=== PATIENT | male | born 1960 | race Caucasian/White ===

== ENCOUNTER 2017-01-01 12:42 | Emergency (ER) | payer OTHER ==
[2017-01-01 12:52] VITALS: RESP 18; TEMP 97.7
[2017-01-01] MEDS ORDERED: TOBRAMYCIN 0.3% OPHTH DROPS 5 ML BTL LEFT EYE STA (14:54)
--- NOTE | 2017-01-01 15:02 | ED ---
Eye Problem HPI - General Chief complaint: Eye Problems Stated complaint: Eye Injury Time Seen by Provider: 01/01/17 14:15 Source: patient Mode of arrival: ambulatory Limitations: no limitations - History of Present Illness Initial comments: Patient is a 56-year-old white male presenting to the emergency department with complaints of left eye injury onset approximately 2 hours prior to arrival. Patient states he was cutting wood outside and was taken a break. Patient states he removed his safety glasses and bent over and a weed poked him in the left eye. Patient complains of eye watering and gritty sensation to his left eye. No treatment prior to arrival. chief complaint: eye injury Onset/Timin -: hour(s) Onset Description: sudden Location: left eye Place: street/outdoors If Injury: direct trauma Eye Symptoms: foreign body sensation, discharge, blurry vision Severity: moderate Severity scale (1-10): 4 If Pain, Quality: other (gritting sensation) Consistency: constant Context: trauma Associated Symptoms: none Treatments Prior to Arrival: none - Related Data Patient Tetanus UTD: Yes Previous Rx's Medication Instructions Recorded Tobramycin 0.3% Ophth Soln [Tobrex 1 - 2 drop BOTH EYES Q4H #1 bottle 01/01/17 0.3% Ophth Soln] Allergies Allergy/AdvReac Type Severity Reaction Status Date / Time No Known Allergies Allergy Verified 07/15/14 16:47 Review of Systems ROS Statement: Those systems with pertinent positive or pertinent negative responses have been documented in the HPI. ROS Other: All systems not noted in ROS Statement are negative. 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 Past Anesthesia/Blood Transfusion Reactions: No Reported Reaction Past Psychological History: No Psychological Hx Reported Smoking Status: Current some day smoker Past Alcohol Use History: None Reported Past Drug Use History: None Reported General Exam Limitations: no limitations General appearance: alert, in no apparent distress Head exam: Present: atraumatic, normocephalic, normal inspection Expanded Eyelids: Normal Inspection: Bilateral Pupils: Regular, Round: Left, Reactive: Left Sclera/Conjunctival: Injection: Left (Corneal abrasion noted to pupil left pupil ) Visual acuity (R) = 20/: 40 Visual acuity (L) = 20/: 30 With correction: No ENT exam: Present: normal exam, normal oropharynx, mucous membranes moist, TM's normal bilaterally, normal external ear exam Neck exam: Present: normal inspection, full ROM. Absent: tenderness, lymphadenopathy Respiratory exam: Present: normal lung sounds bilaterally. Absent: respiratory distress, wheezes, rales, rhonchi, stridor Cardiovascular Exam: Present: regular rate, normal rhythm, normal heart sounds. Absent: systolic murmur, diastolic murmur, rubs, gallop, clicks GI/Abdominal exam: Present: soft, normal bowel sounds. Absent: distended, tenderness, guarding, rebound, rigid Extremities exam: Present: normal inspection, full ROM Neurological exam: Present: alert, oriented X3, normal gait, other (No focal deficits) Psychiatric exam: Present: normal affect, normal mood Skin exam: Present: warm, dry, intact, normal color. Absent: rash Course Vital Signs 01/01/17 12:49 Temperature 97.7 F Pulse Rate 82 Respiratory 18 Rate Blood Pressure 162/83 O2 Sat by Pulse 95 Oximetry Medical Decision Making - Medical Decision Making Corneal abrasion to left pupil without evidence of foreign body. Tobramycin eyedrops initiated in the emergency department. 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 Patient instructed to return to the emergency department immediately if symptoms do not improve or get worse. Patient agrees with treatment plan. Discharge instructions and return parameters reviewed. Disposition Clinical Impression: Injury of conjunctiva and corneal abrasion of left eye w/o FB Disposition: HOME SELF-CARE Condition: Good Instructions: Abrasion (ED) Additional Instructions: Continue tobramycin 1-2 drops every 4 hours for 3-5 days. 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 Please return to the emergency department if symptoms do not improve or get worse. Continue Motrin for pain as needed.. Prescriptions: Tobramycin 0.3% Ophth Soln [Tobrex 0.3% Ophth Soln] 1 - 2 drop BOTH EYES Q4H #1 bottle Referrals: Vito Taveras DO [Primary Care Provider] - 1-2 days Abelardo Santana MD [STAFF PHYSICIAN] - 01/02/17 Time of Disposition: 15:02
[2017-01-01] MEDS ORDERED: PROPARACAINE 0.5% OPHTH DROPS 15 ML BTL LEFT EYE STA (15:06)
[2017-01-01 15:17] VITALS: BP 158/76; PULSE 80
== END 2017-01-01 15:17 | disposition home or self-care (01) ==
LOC: EC 12:42
DX: S05.02XA Injury of conjunctiva and corneal abrasion without foreign body, left eye, initial encounter (principal); W22.8XXA Striking against or struck by other objects, initial encounter; Y93.H9 Activity, other involving exterior property and land maintenance, building and construction; F17.200 Nicotine dependence, unspecified, uncomplicated
CPT/HCPCS: 99283

== ENCOUNTER 2017-12-25 14:37 | Emergency (ER) | payer OTHER ==
[2017-12-25 15:20] VITALS: RESP 18
--- NOTE | 2017-12-25 16:23 | ED ---
Back Pain HPI - General Chief Complaint: Back Pain/Injury Stated Complaint: Abd Pain Time Seen by Provider: 12/25/17 16:23 Source: patient Limitations: no limitations - History of Present Illness Initial Comments: Patient presents with sudden onset left flank pain. Patient states pain started as he was walking to the parking lot leaving the grocery store. Patient denies any falls or trauma. Patient states pain is worse when walking, twisting, moving. Patient states urine is darker than normal, denies any other urinary symptoms. Denies any change in bowel or bladder habits. Denies fevers , chills, nausea, vomiting. Denies history of kidney stones. Patient states having was normal up until onset of pain in parking lot this afternoon. He states he came straight to Hospital, has not tried any treatments at home. Patient states mild exacerbation of pain when he takes a deep breath. - Related Data Previous Rx's Medication Instructions Recorded Cephalexin [Keflex] 500 mg PO Q12HR 10 Days #20 cap 12/25/17 Ibuprofen [Motrin] 600 mg PO Q6HR PRN #20 tab 12/25/17 Methocarbamol [Robaxin] 500 mg PO BID PRN #10 tab 12/25/17 Allergies Allergy/AdvReac Type Severity Reaction Status Date / Time No Known Allergies Allergy Verified 12/25/17 16:44 Review of Systems ROS Statement: Those systems with pertinent positive or pertinent negative responses have been documented in the HPI. ROS Other: All systems not noted in ROS Statement are negative. Constitutional: Denies: fever, chills, weakness ENT: Denies: congestion Respiratory: Denies: cough, dyspnea Cardiovascular: Denies: chest pain, palpitations Endocrine: Denies: fatigue Gastrointestinal: Denies: abdominal pain, nausea, vomiting, diarrhea, constipation Genitourinary: Reports: other (Dark yellow urine). Denies: dysuria, frequency, hematuria Musculoskeletal: Reports: back pain. 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 No acute distress. Conversing normally. Does not appear in pain at rest. Well-appearing. Calm, pleasant. Limitations: no limitations General appearance: alert, in no apparent distress Head exam: Present: atraumatic, normocephalic Eye exam: Present: normal appearance, PERRL, EOMI ENT exam: Present: mucous membranes moist Neck exam: Present: normal inspection Respiratory exam: Present: normal lung sounds bilaterally. Absent: respiratory distress, wheezes, rales Cardiovascular Exam: Present: regular rate, normal rhythm GI/Abdominal exam: Present: soft. Absent: distended, tenderness, guarding Extremities exam: Present: normal inspection Back exam: Present: tenderness, CVA tenderness (L) (mild), other (Mild tenderness just above left flank. Pain exacerbated with active and passive flexion and extension of the back, especially with rotation of the back to either side.). Absent: paraspinal tenderness, vertebral tenderness Neurological exam: Present: alert, oriented X3 Psychiatric exam: Present: normal affect, normal mood Skin exam: Present: warm, dry, intact, normal color. Absent: rash Course Vital Signs 12/25/17 12/25/17 15:18 17:20 Temperature 98.5 F Pulse Rate 74 69 Respiratory 18 18 Rate Blood Pressure 136/80 134/80 O2 Sat by Pulse 97 96 Oximetry Medical Decision Making - Medical Decision Making Patient given Toradol and Robaxin. No significant lab abnormalities. Urinalysis shows questionable infection, given patient's symptoms, we'll give prescription antibiotics. Patient agrees to follow primary care physician for results of urine culture. No significant abnormalities seen on chest x-ray or lumbar spine x-rays per ED reached, awaiting radiology read. Patient reassessed, sleeping comfortably in bed, pain resolved. Patient's symptoms likely secondary to musculoskeletal pain. Discussed monitoring of symptoms, as this could be early in disease process, patient agrees to return to ER for new or worsening symptoms. Patient agrees to follow primary care physician one to 2 days, discussed computed tomography scan of the abdomen and pelvis if symptoms persist. Prescription of Robaxin and Motrin given. We'll discharge home at this time. All questions answered. - Lab Data Result diagrams: 12/25/17 16:56 12/25/17 16:56 Lab Results 12/25/1718 12/25/17 Range/Units 16:56 16:56 16:56 WBC 10.1 (3.8-10.6) k/uL RBC 5.05 (4.30-5.90) m/uL Hgb 15.1 (13.0-17.5) gm/dL Hct 46.8 (39.0-53.0) % MCV 92.7 (80.0-100.0) fL MCH 29.9 (25.0-35.0) pg MCHC 32.2 (31.0-37.0) g/dL RDW 12.6 (11.5-15.5) % Plt Count 480 H (150-450) k/uL Neutrophils % 60 % Lymphocytes % 28 % Monocytes % 8 % Eosinophils % 2 % Basophils % 1 % Neutrophils # 6.1 (1.3-7.7) k/uL Lymphocytes # 2.8 (1.0-4.8) k/uL Monocytes # 0.8 (0-1.0) k/uL Eosinophils # 0.2 (0-0.7) k/uL Basophils # 0.1 (0-0.2) k/uL Sodium 139 (137-145) mmol/L Potassium 4.6 (3.5-5.1) mmol/L Chloride 102 (98-107) mmol/L Carbon Dioxide 26 (22-30) mmol/L Anion Gap 11 mmol/L BUN 15 (9-20) mg/dL Creatinine 0.77 (0.66-1.25) mg/dL Est GFR (MDRD) Af Amer >60 (>60 ml/min/1.73 sqM) Est GFR (MDRD) Non-Af >60 (>60 ml/min/1.73 sqM) Glucose 111 H (74-99) mg/dL Calcium 10.1 (8.4-10.2) mg/dL Urine Color Yellow Urine Appearance Clear (Clear) Urine pH 6.0 (5.0-8.0) Ur Specific Boley 1.022 (1.001-1.035) Urine Protein Trace H (Negative) Urine Glucose (UA) Negative (Negative) Urine Ketones Negative (Negative) Urine Blood Negative (Negative) Urine Nitrite Negative (Negative) Urine Bilirubin Negative (Negative) Urine Urobilinogen <2.0 (<2.0) mg/dL Ur Leukocyte Esterase Moderate H (Negative) Urine RBC 1 (0-5) /hpf Urine WBC 6 H (0-5) /hpf Ur Squamous Epith Cells <1 (0-4) /hpf Urine Bacteria Occasional H (None) /hpf Urine Mucus Moderate H (None) /hpf Disposition Clinical Impression: Left flank pain Disposition: HOME SELF-CARE Condition: Good Instructions: Flank Pain (ED) Additional Instructions: Follow-up with your primary care physician one to 2 days. Return to ER for new or worsening symptoms. Prescriptions: Cephalexin [Keflex] 500 mg PO Q12HR 10 Days #20 cap Ibuprofen [Motrin] 600 mg PO Q6HR PRN #20 tab PRN Reason: Pain Methocarbamol [Robaxin] 500 mg PO BID PRN #10 tab PRN Reason: Muscle Spasm Referrals: None,Stated [REFERRING] - 1-2 days
[2017-12-25] MEDS ORDERED: KETOROLAC 30 MG/ML 1 ML VIAL IVP STA (16:45)
[2017-12-25] MEDS ORDERED: METHOCARBAMOL 500 MG TAB PO STA (16:45)
[2017-12-25 17:08] LABS: Basophils # (A) 0.1 k/uL (0-0.2); Basophils % (A) 1 %; Eosinophils # (A) 0.2 k/uL (0-0.7); Eosinophils % (A) 2 %; HCT 46.8 % (39.0-53.0); HGB 15.1 gm/dL (13.0-17.5); Lymphocytes # (A) 2.8 k/uL (1.0-4.8); Lymphocytes % (A) 28 %; MCH 29.9 pg (25.0-35.0); MCHC 32.2 g/dL (31.0-37.0); MCV 92.7 fL (80.0-100.0); Mean Platelet Volume 7.3; Monocytes # (A) 0.8 k/uL (0-1.0); Monocytes % (A) 8 %; Neutrophils # (A) 6.1 k/uL (1.3-7.7); Neutrophils % (A) 60 %; Platelet Count 480 k/uL (150-450); RBC 5.05 m/uL (4.30-5.90); RDW 12.6 % (11.5-15.5); WBC 10.1 k/uL (3.8-10.6)
[2017-12-25 17:12] LABS: Appearance,Urine Clear (Clear); Bacteria,Urine Occasional /hpf; Bilirubin,Urine Negative (Negative); Blood,Urine Negative (Negative); Color,Urine Yellow; Glucose,Urine (UA) Negative (Negative); Ketones,Urine Negative (Negative); Leukocyte Esterase,Urine Moderate (Negative); Mucus,Urine Moderate /hpf; Nitrite,Urine Negative (Negative); Protein,Urine Trace (Negative); RBC,Urine 1 /hpf (0-5); Specific Gravity,Urine 1.022 (1.001-1.035); Squamous Epithelial Cell,Urine <1 /hpf (0-4); Urobilinogen,Urine <2.0 mg/dL (<2.0); WBC,Urine 6 /hpf (0-5)
[2017-12-25 17:16] LABS: Anion Gap 11 mmol/L; Blood Urea Nitrogen 15 mg/dL (9-20); Calcium 10.1 mg/dL (8.4-10.2); Carbon Dioxide 26 mmol/L (22-30); Chloride 102 mmol/L (98-107); Glucose 111 mg/dL (74-99); Potassium 4.6 mmol/L (3.5-5.1); Sodium 139 mmol/L (137-145)
[2017-12-25 18:36] VITALS: BP 134/70; PULSE 80; TEMP 98
--- NOTE | 2017-12-25 19:17 | XR ---
EXAMINATION TYPE: XR chest 2V DATE OF EXAM: 12/25/2017 COMPARISON: 07/15/2014 HISTORY: Left flank pain TECHNIQUE: Frontal and lateral views of the chest are obtained. FINDINGS: Heart and mediastinum are normal. Lungs are clear of consolidation. There are no hilar mas ses. There are small calcified granulomata at the pulmonary merrick. There is no sign of pleural effusio n. Bony thorax is intact. IMPRESSION: No active cardiopulmonary disease. No change.
--- NOTE | 2017-12-25 19:20 | XR ---
EXAMINATION TYPE: XR lumbar spine 2 or 3V DATE OF EXAM: 12/25/2017 COMPARISON: NONE HISTORY: Left flank pain TECHNIQUE: 3 views FINDINGS: The lumbar vertebra have normal alignment. Disc spaces are fairly normal. Posterior element s are intact. I see no compression fracture. Sacroiliac joints appear intact. There is mild spurring of the endplates. IMPRESSION: Mild spurring. Otherwise negative exam. No fracture.
== END 2017-12-25 18:35 | disposition home or self-care (01) ==
LOC: EC 14:37
DX: R10.9 Unspecified abdominal pain (principal); M54.9 Dorsalgia, unspecified; F17.200 Nicotine dependence, unspecified, uncomplicated
CPT/HCPCS: 36415; 80048; 85025; 81001; 72100; 71046; 99283; 96374; J1885

== ENCOUNTER → 2018-07-10 | Outpatient (CLI) | payer OTHER ==
--- NOTE | 2018-07-10 12:12 | XR ---
EXAMINATION TYPE: XR sternum DATE OF EXAM: 07/10/2018 COMPARISON: None HISTORY: Pain TECHNIQUE: Two-view sternum FINDINGS: No acute fractures of the sternum are evident. Soft tissues appear within normal limits. IMPRESSION: 1. Normal sternum
--- NOTE | 2018-07-10 12:13 | XR ---
EXAMINATION TYPE: XR ribs LT DATE OF EXAM: 07/10/2018 COMPARISON: None HISTORY: Pain TECHNIQUE: Two-view left RIBS FINDINGS: No acute displaced fractures are evident. No pneumothorax is evident. IMPRESSION: 1. Normal left ribs
== END | disposition home or self-care (01) ==
LOC: RADXRMAIN 11:20
PROVIDERS: ATTEND Family Medicine
DX: R07.89 Other chest pain (principal)
CPT/HCPCS: 71120

== ENCOUNTER 2019-06-21 17:08 | Emergency (ER) | payer BC, MEDICARE ==
[2019-06-21 17:12] VITALS: BP 162/88; PULSE 78; RESP 18; TEMP 99.2
--- NOTE | 2019-06-21 18:12 | US ---
EXAMINATION TYPE: US venous doppler duplex LE LT DATE OF EXAM: 06/21/2019 6:07 PM COMPARISON: NONE CLINICAL HISTORY: sent by PCP r/o blood clot left calf. Patient had left calf pain, then felt opping sensation , and has left calf pain x 1 month SIDE PERFORMED: Left TECHNIQUE: The lower extremity deep venous system is examined utilizing real time linear array sonog katrina with graded compression, doppler sonography and color-flow sonography. VESSELS IMAGED: Common Femoral Vein Deep Femoral Vein Greater Saphenous Vein * Femoral Vein Popliteal Vein Small Saphenous Vein * Proximal Calf Veins (* superficial vessels) Left Leg: Negative for DVT IMPRESSION: No evidence of deep venous thrombosis in the left leg.
--- NOTE | 2019-06-21 18:17 | ED ---
Lower Extremity Injury HPI - General Chief Complaint: Extremity Injury, Lower Stated Complaint: Leg swelling Time Seen by Provider: 06/21/19 17:12 Source: patient Mode of arrival: ambulatory Limitations: no limitations - History of Present Illness Initial Comments: 58-year-old male presenting for left calf pain and swelling for the past month. Patient states that one day he pushed off his left calf and felt a pop. He states that she's had pain and swelling. Patient is primary care provider who noted the swelling of the left calf in comparison of the right and sent to the emergency department to rule out blood clot. Patient denies history of DVT or pulmonary embolism denies chest pain shortness of breath denies redness fever chills night sweats or palpable masses. Patient states he is able to weight- bear denies any decrease in strength. Remaining review of systems negative upon arrival patient appears well signs of acute distress. - Related Data Previous Rx's Medication Instructions Recorded Cephalexin [Keflex] 500 mg PO Q12HR 10 Days #20 cap 12/25/17 Ibuprofen [Motrin] 600 mg PO Q6HR PRN #20 tab 12/25/17 Methocarbamol [Robaxin] 500 mg PO BID PRN #10 tab 12/25/17 Allergies Allergy/AdvReac Type Severity Reaction Status Date / Time No Known Allergies Allergy Verified 06/21/19 17:12 Review of Systems ROS Statement: Those systems with pertinent positive or pertinent negative responses have been documented in the HPI. ROS Other: All systems not noted in ROS Statement are negative. 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 Eye: Pupils are equal, round and reactive to light, extra-ocular movements are intact. No nystagmus. There is normal conjunctiva bilaterally. No signs of icterus. Cardiovascular: There is a regular rate and rhythm. No murmur, rub or gallop is appreciated. Respiratory: Lungs are clear to auscultation, respirations are non-labored, breath sounds are equal. No wheezes, stridor, rales, or rhonchi. Musculoskeletal: Slight increase in size of left calf in comparison right. No pitting edema. Patient has tenderness over the mid calf to deep palpation. Achilles intact. Normal ROM at knee and ankle, no tenderness. Strength 5/5. Sensation intact. DP pulses equal bilaterally 2+. Neurological: A&O x 3. CN II-XII intact, There are no obvious motor or sensory deficits. Coordination appears grossly intact. Speech is normal. Skin: Skin is warm and dry and no rashes or lesions are noted. Psychiatric: Cooperative, appropriate mood & affect, normal judgment. Limitations: no limitations Course Vital Signs 06/21/19 17:09 Temperature 99.2 F Pulse Rate 78 Respiratory 18 Rate Blood Pressure 162/88 O2 Sat by Pulse 96 Oximetry Medical Decision Making - Medical Decision Making Ultrasound negative for DVT. This time given history popping sensation I feel patient most likely has a tendon or muscle tear. Recommend patient follow-up with orthopedic surgery for further evaluation. Patient is agreeable with this care plan was discharged appearing well Disposition Clinical Impression: Pain of left calf, Muscle strain Disposition: HOME SELF-CARE Condition: Good Instructions (If sedation given, give patient instructions): Tendon Rupture (ED) Additional Instructions: Please use medication as discussed. Please follow-up with orthopedic surgery in the next week. Please return to emergency room if the symptoms increase or w orsen or for any other concerns, chest pain, shortness of breath. Is patient prescribed a controlled substance at d/c from ED?: No Referrals: Vito Taveras DO [Primary Care Provider] - 1-2 days Kwadwo Jackson PAC [PHYSICIAN [employer] DRIVER OR OPERATOR] - 1-2 days Time of Disposition: 18:16
== END 2019-06-21 18:25 | disposition home or self-care (01) ==
LOC: EC 17:08
DX: S86.912A Strain of unspecified muscle(s) and tendon(s) at lower leg level, left leg, initial encounter (principal); F17.200 Nicotine dependence, unspecified, uncomplicated; X50.9XXA Other and unspecified overexertion or strenuous movements or postures, initial encounter
CPT/HCPCS: 99283

== ENCOUNTER 2019-11-15 17:36 | Emergency (ER) | payer BC ==
[2019-11-15] MEDS ORDERED: DIPH,PERTUS(ACELL)TETVAC-LF 0.5 ML VIAL IM ONE (18:20)
[2019-11-15] MEDS ORDERED: PROPARACAINE 0.5% OPHTH DROPS 15 ML BTL LEFT EYE STA (18:20)
--- NOTE | 2019-11-15 18:29 | ED ---
General Adult HPI - General Source: patient, RN notes reviewed, old records reviewed Mode of arrival: ambulatory Limitations: no limitations <Desmond Mcneil - Last Filed: 11/15/19 19:41> <Mark Chappell - Last Filed: 11/15/19 19:55> - General Chief complaint: Fall Stated complaint: fall/eye injury Time Seen by Provider: 11/15/19 18:08 - History of Present Illness Initial comments: 59-year-old male patient past history significant for appendectomy and splenectomy presents to ED for chief complaint of fall. Patient reports that at approximately 5:20 PM he was exiting the shower. He reports that while walking out of the shower his [place] leg the tub edge. She reports that he slipped and fell back into the shower. Patient reports that he hit his forehead against the wall slid down and he believes that he had a portion of the water spout directly onto his left eye. At this time patient does complain of bleeding from the left eye. He reports that he has cloudy vision in his left eye as well as diplopia. Denies any pain in neck. Denies any use of blood thinners. Denies any other complaints at this time. Systemic: Pt denies fatigue, fever/chills, rash. Pt denies weakness, night sweats, weight loss. Neuro: Pt denies headache, visual disturbances, syncope or pre-syncope. HEENT: Pt denies ocular discharge or irritation, otalgia, rhinorrhea, pharyngitis or notable lymphadenopathy. Cardiopulmonary: Pt denies chest pain, SOB, heart palpitations, dyspnea on exertion. Abdominal/GI: Pt denies abdominal pain, n/v/d. : Pt denies dysuria, burning w/ urination, frequency/urgency. Denies new onset urinary or bowel incontinence. MSK: Pt denies myalgia, loss of strength or function in extremities. Neuro: Pt denies new onset weakness, paresthesias. (Desmond Mcneil) - Related Data Previous Rx's Medication Instructions Recorded Cephalexin [Keflex] 500 mg PO Q12HR 10 Days #20 cap 12/25/17 Ibuprofen [Motrin] 600 mg PO Q6HR PRN #20 tab 12/25/17 Methocarbamol [Robaxin] 500 mg PO BID PRN #10 tab 12/25/17 Amoxicillin/Potassium Clav 1 each PO Q12HR 10 Days #20 tab 11/15/19 [Augmentin 875-125 Tablet] Gentamicin 0.3% Ophth Soln 2 drops LEFT EYE Q4HR 5 Days #1 11/15/19 [Garamycin 0.3% Ophth Soln] bottle Allergies Allergy/AdvReac Type Severity Reaction Status Date / Time No Known Allergies Allergy Verified 06/21/19 17:12 Review of Systems ROS Other: All systems not noted in ROS Statement are negative. <Desmond Mcneil - Last Filed: 11/15/19 19:41> ROS Other: All systems not noted in ROS Statement are negative. <Mark Chappell - Last Filed: 11/15/19 19:55> ROS Statement: Those systems with pertinent positive or pertinent negative responses have been documented in the HPI. 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 HEENT: NC/AT, trachea midline, neck supple, no lymphadenopathy. Posterior pharynx non erythematous, without exudates. External ears appear normal, without discharge. Mucous membranes moist. Eyes PERRLA, EOM intact. No pallor noted. Intraocular pressure average of 18 right sided, average 26 left-sided. Mild amount of blood noted on the conjunctiva. Cornea abrasion at 3:00. No hyphema is noted. Cardiopulmonary: RRR, no murmurs, rubs or gallops, no JVD noted. Lungs CTAB in anterior and posterior carroll. No peripheral edema. Abdominal exam: Abdomen soft and non-distended. Abdomen non-tender to palpation in all 4 quadrants. Bowel sounds active in LLQ. No hepatosplenomegaly. No ecchymosis Neuro: CN II-XII intact. No nuchal rigidity. No raccon eyes, no prater sign, no hemotympanum. No cervical spinal tenderness. MSK: No posterior calf tenderness bilaterally, homans sign negative bilaterally. Posterior tibialis and radial pulse +2 bilaterally. Sensation intact in upper and lower extremities. Full active ROM in upper and lower extremities, 5/5 stregnth. Derm: Small superficial laceration <1 cm above left eye proximal to eyebrow elidia aned approximated with Steri-Strip. Visual Acuity: Bilateral: 20/20 Right Eye: 20/30 Left Eye 20/20 (Desmond Mcneil) Course Vital Signs 11/15/19 11/15/19 17:53 19:48 Temperature 98.7 F 97.9 F Pulse Rate 81 77 Respiratory 18 17 Rate Blood Pressure 186/86 169/81 O2 Sat by Pulse 95 96 Oximetry Medical Decision Making - Lab Data Result diagrams: 11/15/19 18:28 11/15/19 18:28 <Desmond Mcneil - Last Filed: 11/15/19 19:41> - Lab Data Result diagrams: 11/15/19 18:28 11/15/19 18:28 <Mark Chappell - Last Filed: 11/15/19 19:55> - Medical Decision Making 59-year-old male patient past history significant for appendectomy and splenectomy presents to ED for chief complaint of fall. Patient reports that at approximately 5:20 PM he was exiting the shower. He reports that while walking out of the shower his [place] leg the tub edge. She reports that he slipped and fell back into the shower. Patient reports that he hit his forehead against the wall slid down and he believes that he had a portion of the water spout directly onto his left eye. At this time patient does complain of bleeding from the left eye. He reports that he has cloudy vision in his left eye as well as diplopia. Denies any pain in neck. Denies any use of blood thinners. Denies any other complaints at this time. Patient vital signs slight mild hypertension. Physical exam displayed: Intraocular pressure average of 18 right sided, average 26 left-sided. Mild amount of blood noted on the conjunctiva. Cornea abrasion at 3:00. No hyphema is noted. N II-XII intact. No nuchal rigidity. No raccon eyes, no prater sign, no hemotympanum. No cervical spinal tenderness. Small superficial laceration <1 cm above left eye proximal to eyebrow cleaned approximated with Steri-Strip. Visual acuity displayed bilateral 20/20 vision. Right eye was 20/30. Left eye which was the affected eye was 20/20. CT of orbits displayed mild subcutaneous swelling over the frontal bone. No fracture seen. Ethmoid and maxillary moderate sinusitis. Brain CT did not display any acute intracranial process with exception of sinusitis redemonstrated. No evidence of blowout fracture. Tetanus was updated. Case was discussed in depth the patient was examined by Dr. Chappell. Discussed case with Dr. Santana. Dr. Santana recommended discharge with antibiotic eyedrops. Will see patient on Monday. Patient was discharged with gentamicin eyedrops and Augmentin for sinusitis. Will return to ER if condition worsens. (Desmond Mcneil) Patient was reevaluated by myself, Dr. Chappell. Patient does have subconjunctival hemorrhage. No hyphema. There is evidence of moderate to large abrasion left lateral eye. Extraocular muscles intact. Pupils equal round reactive to light. Funduscopic exam within normal limits, able to visualize the retina. Computed tomography scan shows no evidence of globe rupture. Case was discussed in detail with Dr. Santana who believes doubled vision is likely from swelling and is very comfortable secondary to no globe rupture on computed tomography scan. He will follow-up with the patient on Monday. Patient updated. (Mark Chappell) - Lab Data Lab Results 11/15/19 11/15/19 11/15/19 Range/Units 18:28 18:28 18:28 WBC 10.5 (3.8-10.6) k/uL RBC 5.10 (4.30-5.90) m/uL Hgb 15.6 (13.0-17.5) gm/dL Hct 47.3 (39.0-53.0) % MCV 92.7 (80.0-100.0) fL MCH 30.6 (25.0-35.0) pg MCHC 33.0 (31.0-37.0) g/dL RDW 13.3 (11.5-15.5) % Plt Count 460 H (150-450) k/uL Neutrophils % 57 % Lymphocytes % 29 % Monocytes % 7 % Eosinophils % 4 % Basophils % 4 % Neutrophils # 6.0 (1.3-7.7) k/uL Lymphocytes # 3.1 (1.0-4.8) k/uL Monocytes # 0.7 (0-1.0) k/uL Eosinophils # 0.4 (0-0.7) k/uL Basophils # 0.4 H (0-0.2) k/uL PT 10.1 (9.0-12.0) sec INR 0.9 (<1.2) APTT 24.5 (22.0-30.0) sec Sodium 138 (137-145) mmol/L Potassium 4.3 (3.5-5.1) mmol/L Chloride 104 (98-107) mmol/L Carbon Dioxide 24 (22-30) mmol/L Anion Gap 10 mmol/L BUN 18 (9-20) mg/dL Creatinine 0.78 (0.66-1.25) mg/dL Est GFR (CKD-EPI)AfAm >90 (>60 ml/min/1.73 sqM) Est GFR (CKD-EPI)NonAf >90 (>60 ml/min/1.73 sqM) Glucose 109 H (74-99) mg/dL Calcium 9.7 (8.4-10.2) mg/dL Total Bilirubin 0.5 (0.2-1.3) mg/dL AST 32 (17-59) U/L ALT 28 (4-49) U/L Alkaline Phosphatase 91 (38-126) U/L Total Protein 7.6 (6.3-8.2) g/dL Albumin 4.4 (3.5-5.0) g/dL Disposition Is patient prescribed a controlled substance at d/c from ED?: No <Desmond Mcneil - Last Filed: 11/15/19 19:41> <Mark Chappell - Last Filed: 11/15/19 19:55> Clinical Impression: Corneal abrasion, Fall, Sinusitis Disposition: HOME SELF-CARE Condition: Stable Instructions (If sedation given, give patient instructions): Corneal Abrasion (ED) Additional Instructions: Take antibiotics as directed. Follow-up with Dr. Santana on Monday. Return to ER physician worsens in any way. Use eyedrops 2 drops every 4 hours for 5 days. Use in left eye only. Take Augm entin the pill twice a day for the next 10 days. Prescriptions: Amoxicillin/Potassium Clav [Augmentin 875-125 Tablet] 1 each PO Q12HR 10 Days #20 tab Gentamicin 0.3% Ophth Soln [Garamycin 0.3% Ophth Soln] 2 drops LEFT EYE Q4HR 5 Days #1 bottle Referrals: Vito Taveras DO [Primary Care Provider] - 1-2 days Abelardo Santana MD [STAFF PHYSICIAN] - 1-2 days
[2019-11-15 18:43] LABS: Basophils # (A) 0.4 k/uL (0-0.2); Basophils % (A) 4 %; Eosinophils # (A) 0.4 k/uL (0-0.7); Eosinophils % (A) 4 %; HCT 47.3 % (39.0-53.0); HGB 15.6 gm/dL (13.0-17.5); Lymphocytes # (A) 3.1 k/uL (1.0-4.8); Lymphocytes % (A) 29 %; MCH 30.6 pg (25.0-35.0); MCV 92.7 fL (80.0-100.0); Mean Platelet Volume 10.2; Monocytes # (A) 0.7 k/uL (0-1.0); Monocytes % (A) 7 %; Neutrophils % (A) 57 %; Platelet Count 460 k/uL (150-450); RDW 13.3 % (11.5-15.5); WBC 10.5 k/uL (3.8-10.6)
[2019-11-15] MEDS ORDERED: MORPHINE SULFATE 2 MG/ML SYRINGE IVP STA (18:50)
--- NOTE | 2019-11-15 18:50 | CT ---
EXAMINATION TYPE: CT brain wo con DATE OF EXAM: 11/15/2019 COMPARISON: None HISTORY: Fall, left orbital swelling and contusion. CT DLP: 1093.6 mGycm Automated exposure control for dose reduction was used. Multiple axial sections were obtained of the brain with no contrast. Ventricles have normal size. There is no mass effect nor midline shift. There is no sign of intracran ial hemorrhage. The calvarium is intact. There is mucosal thickening and fluid levels in the maxillar y sinuses. There is moderate mucosal thickening in the ethmoid sinuses. I see no evidence of a blowou t fracture of the orbits. Orbital margins are intact. Calvarium is intact. IMPRESSION: Negative CT scan of the brain. Maxillary and ethmoid sinusitis.
[2019-11-15 18:53] LABS: INR 0.9 (<1.2); Partial Thromboplastin Time 24.5 sec (22.0-30.0); Prothrombin Time 10.1 sec (9.0-12.0)
--- NOTE | 2019-11-15 18:53 | CT ---
EXAMINATION TYPE: CT orbits wo con DATE OF EXAM: 11/15/2019 COMPARISON: HISTORY: Fall, left orbital swelling and contusion. CT DLP: 1093.6 mGycm Automated exposure control for dose reduction was used. Multiple axial sections were obtained from the maxillary sinuses to the top of the frontal sinuses wi th no contrast. There is moderate mucosal thickening in the maxillary and ethmoid sinuses. Nasal bone appears intact. Orbital margins are intact. There is no evidence of a blowout fracture. There is mild subcutaneous e jayne over the frontal bone. The globes are symmetric. There is no evidence of orbital blowout fractur e. I see no bony destructive process. IMPRESSION: Mild subcutaneous swelling over the frontal bone. No fracture seen. Ethmoid and maxillary moderate si nusitis. No evidence of blowout fracture.
[2019-11-15 18:56] LABS: ALT 28 U/L (4-49); AST 32 U/L (17-59); African American GFR (CKD) >90 (>60 ml/min/1.73 sqM); Albumin 4.4 g/dL (3.5-5.0); Alkaline Phosphatase 91 U/L (38-126); Anion Gap 10 mmol/L; Blood Urea Nitrogen 18 mg/dL (9-20); Calcium 9.7 mg/dL (8.4-10.2); Carbon Dioxide 24 mmol/L (22-30); Chloride 104 mmol/L (98-107); Glucose 109 mg/dL (74-99); Non-African American GFR(CKD) >90 (>60 ml/min/1.73 sqM); Potassium 4.3 mmol/L (3.5-5.1); Sodium 138 mmol/L (137-145); Total Bilirubin 0.5 mg/dL (0.2-1.3); Total Protein 7.6 g/dL (6.3-8.2)
[2019-11-15] MEDS ORDERED: AMOXIC-POT CLAV 875MG STARTER 2 EACH TABLET PO STA (19:43)
[2019-11-15] MEDS ORDERED: GENTAMICIN 0.3% OPHTH DROPS 5 ML BTL LEFT EYE STA (19:44)
[2019-11-15 19:49] VITALS: BP 169/81; PULSE 77; RESP 17; TEMP 97.9
== END 2019-11-15 20:18 | disposition home or self-care (01) ==
LOC: EC 17:36
DX: S05.02XA Injury of conjunctiva and corneal abrasion without foreign body, left eye, initial encounter (principal); J32.0 Chronic maxillary sinusitis; J32.2 Chronic ethmoidal sinusitis; S01.81XA Laceration without foreign body of other part of head, initial encounter; I10 Essential (primary) hypertension; H11.32 Conjunctival hemorrhage, left eye; F17.200 Nicotine dependence, unspecified, uncomplicated; Z23 Encounter for immunization; W18.2XXA Fall in (into) shower or empty bathtub, initial encounter; Y93.01 Activity, walking, marching and hiking; Y92.002 Bathroom of unspecified non-institutional (private) residence as the place of occurrence of the external cause
CPT/HCPCS: 36415; 80053; 85025; 85610; 85730; 70450; 70480; 90715; 99284; 96374; 90471; J2270

== ENCOUNTER 2021-04-26 21:07 | Emergency (ER) | payer BC ==
[2021-04-26 21:28] VITALS: TEMP 97.7
[2021-04-26] MEDS ORDERED: METOCLOPRAMIDE 5 MG/ML 2 ML VIAL IVP STA (22:19)
[2021-04-26 22:54] LABS: Basophils # (A) 0.1 k/uL (0-0.2); Basophils % (A) 1 %; Eosinophils # (A) 0.4 k/uL (0-0.7); Eosinophils % (A) 4 %; HCT 43.5 % (39.0-53.0); HGB 14.9 gm/dL (13.0-17.5); Lymphocytes # (A) 3.6 k/uL (1.0-4.8); Lymphocytes % (A) 31 %; MCH 30.6 pg (25.0-35.0); MCHC 34.3 g/dL (31.0-37.0); MCV 89.1 fL (80.0-100.0); Mean Platelet Volume 7.7; Monocytes # (A) 0.8 k/uL (0-1.0); Monocytes % (A) 7 %; Neutrophils # (A) 6.5 k/uL (1.3-7.7); Neutrophils % (A) 56 %; Platelet Count 423 k/uL (150-450); RBC 4.89 m/uL (4.30-5.90); RDW 12.7 % (11.5-15.5); WBC 11.7 k/uL (3.8-10.6)
[2021-04-26 22:58] LABS: African American GFR (CKD) >90 (>60 ml/min/1.73 sqM); Anion Gap 8 mmol/L; Blood Urea Nitrogen 22 mg/dL (9-20); Calcium 9.6 mg/dL (8.4-10.2); Carbon Dioxide 28 mmol/L (22-30); Chloride 104 mmol/L (98-107); Glucose 104 mg/dL (74-99); Non-African American GFR(CKD) >90 (>60 ml/min/1.73 sqM); Potassium 4.2 mmol/L (3.5-5.1); Sodium 140 mmol/L (137-145)
--- NOTE | 2021-04-26 23:09 | CT ---
EXAMINATION TYPE: CT brain wo con DATE OF EXAM: 04/26/2021 COMPARISON: 11/15/2019 HISTORY: HEADACHE X 1WEEK CT DLP: 3306.1 mGycm Automated exposure control for dose reduction was used. Images of the brain obtained without contrast. There is mild cerebral atrophy. There is no mass effect nor midline shift. There is no sign of intrac ranial hemorrhage. Calvarium is intact. Skull base is intact. There is normal aeration of the mastoid sinuses. There is mucosal thickening in the maxillary sinuses. IMPRESSION: Mild atrophy. No acute intracranial abnormality. No change.
--- NOTE | 2021-04-26 23:24 | CT ---
EXAMINATION TYPE: CT angio COW [facility] DATE OF EXAM: 04/26/2021 COMPARISON: None HISTORY: HEADACHE CT DLP: 3306.1 mGycm Automated exposure control for dose reduction was used. CONTRAST: Performed with IV Contrast, patient injected with 100 mL of Isovue 370. There are 3-D post processed images. Images obtained from the skull base to the vertex of the brain w ith IV contrast. There is arterial flow in the vertebrobasilar artery system. There is arterial flow in the anterior m iddle and posterior cerebral arteries. There is no mass effect. I see no evidence of intracranial ane urysm or neovascularity. There is normal enhancement of the venous sinuses. I see no evidence of intr acranial arterial stenosis. There is bilateral maxillary sinusitis with mucosal thickening. There is mild ethmoid sinus mucosal thickening. IMPRESSION: Negative CT angiogram of the brain. There is ethmoid and maxillary sinusitis.
--- NOTE | 2021-04-26 23:26 | ED ---
Headache HPI - General Chief Complaint: Headache Stated Complaint: headache Time Seen by Provider: 04/26/21 21:52 Mode of arrival: ambulatory Limitations: no limitations - History of Present Illness Initial Comments: This patient is 60-year-old man who presents to be evaluated for intermittent headaches that is been going on today. He states that he will have a sharp pain in the left parietal area that lasts usually 5-10 seconds and resolves. No associated symptoms. He did see his primary physician and it was recommended he come in to be seen here For CAT scan. No fever or chills. No neck pain or stiffness. No neurologic symptoms. MD Complaint: headache -: hour(s) Onset Description: sudden, now resolved Location: left Severity: moderate Quality: sharp, intermittent, worst headache of life Consistency: intermittent Improves With: nothing Worsens With: none Context: occurred at rest Treatments Prior to Arrival: none - Related Data Previous Rx's Medication Instructions Recorded Cephalexin [Keflex] 500 mg PO Q12HR 10 Days #20 cap 12/25/17 Ibuprofen [Motrin] 600 mg PO Q6HR PRN #20 tab 12/25/17 Methocarbamol [Robaxin] 500 mg PO BID PRN #10 tab 12/25/17 Amoxicillin/Potassium Clav 1 each PO Q12HR 10 Days #20 tab 11/15/19 [Augmentin 875-125 Tablet] Gentamicin 0.3% Ophth Soln 2 drops LEFT EYE Q4HR 5 Days #1 11/15/19 [Garamycin 0.3% Ophth Soln] bottle Allergies Allergy/AdvReac Type Severity Reaction Status Date / Time No Known Allergies Allergy Verified 04/26/21 21:27 Review of Systems ROS Statement: Those systems with pertinent positive or pertinent negative responses have been documented in the HPI. ROS Other: All systems not noted in ROS Statement are negative. Constitutional: Denies: fever, chills Respiratory: Denies: cough, dyspnea Cardiovascular: Denies: chest pain, palpitations Gastrointestinal: Denies: abdominal pain, nausea, vomiting Genitourinary: Denies: dysuria Musculoskeletal: Denies: back pain Skin: Denies: rash Neurological: Reports: headache. 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 Absent: scleral icterus, conjunctival injection, nystagmus, periorbital swelling, periorbital tenderness ENT exam: Present: normal oropharynx, TM's normal bilaterally, normal external ear exam Neck exam: Present: normal inspection, full ROM. Absent: tenderness Respiratory exam: Present: normal lung sounds bilaterally. Absent: respiratory distress, wheezes, rales, rhonchi, stridor Cardiovascular Exam: Present: regular rate, normal rhythm, normal heart sounds. Absent: systolic murmur, diastolic murmur, rubs, gallop Back exam: Present: normal inspection. Absent: CVA tenderness (R), CVA tenderness (L), vertebral tenderness Neurological exam: Present: alert, oriented X3, CN II-XII intact. Absent: motor sensory deficit Skin exam: Present: warm, dry, intact, normal color. Absent: rash Course Vital Signs 04/26/21 04/26/21 04/27/21 21:25 22:27 00:22 Temperature 97.7 F Pulse Rate 73 84 70 Respiratory 20 18 16 Rate Blood Pressure 186/96 185/86 159/85 O2 Sat by Pulse 96 98 96 Oximetry Medical Decision Making - Lab Data Result diagrams: 04/26/21 22:28 04/26/21 22:28 Lab Results 04/26/21 04/26/21 Range/Units 22:28 22:28 WBC 11.7 H (3.8-10.6) k/uL RBC 4.89 (4.30-5.90) m/uL Hgb 14.9 (13.0-17.5) gm/dL Hct 43.5 (39.0-53.0) % MCV 89.1 (80.0-100.0) fL MCH 30.6 (25.0-35.0) pg MCHC 34.3 (31.0-37.0) g/dL RDW 12.7 (11.5-15.5) % Plt Count 423 (150-450) k/uL MPV 7.7 Neutrophils % 56 % Lymphocytes % 31 % Monocytes % 7 % Eosinophils % 4 % Basophils % 1 % Neutrophils # 6.5 (1.3-7.7) k/uL Lymphocytes # 3.6 (1.0-4.8) k/uL Monocytes # 0.8 (0-1.0) k/uL Eosinophils # 0.4 (0-0.7) k/uL Basophils # 0.1 (0-0.2) k/uL Sodium 140 (137-145) mmol/L Potassium 4.2 (3.5-5.1) mmol/L Chloride 104 (98-107) mmol/L Carbon Dioxide 28 (22-30) mmol/L Anion Gap 8 mmol/L BUN 22 H (9-20) mg/dL Creatinine 0.88 (0.66-1.25) mg/dL Est GFR (CKD-EPI)AfAm >90 (>60 ml/min/1.73 sqM) Est GFR (CKD-EPI)NonAf >90 (>60 ml/min/1.73 sqM) Glucose 104 H (74-99) mg/dL Calcium 9.6 (8.4-10.2) mg/dL Disposition Clinical Impression: Headache Disposition: HOME SELF-CARE Condition: Good Instructions (If sedation given, give patient instructions): Acute Headache (ED) Is patient prescribed a controlled substance at d/c from ED?: No Referrals: Vito Taveras DO [Primary Care Provider] - 1-2 days Kris Laird MD [STAFF PHYSICIAN] - 1-2 days
[2021-04-27 00:26] VITALS: BP 159/85; PULSE 70; RESP 16
== END 2021-04-27 00:34 | disposition home or self-care (01) ==
LOC: EC 21:07
DX: R51.9 Headache, unspecified (principal); F17.200 Nicotine dependence, unspecified, uncomplicated; F12.90 Cannabis use, unspecified, uncomplicated
CPT/HCPCS: 99284 ×2; 96374 ×2; 36415; 80048; 85025; 70496; 70450; J2765; Q9967

== ENCOUNTER 2024-09-03 11:03 | Inpatient (IN) | payer BC ==
--- NOTE | 2024-09-03 11:57 | ED ---
General Adult HPI - General Chief complaint: Dizziness Stated complaint: dizziness Time Seen by Provider: 09/03/24 11:31 Source: patient Mode of arrival: ambulatory Limitations: no limitations - History of Present Illness Initial comments: Dictation was produced using e[employer] dictation software. please excuse any grammatical, word or spelling errors. Chief Complaint: 63-year-old male presents with dizziness History of Present Illness: Patient 63-year-old male presents emergency department dizziness. He was at [employer] when he started to feel like the room was spinning. He came to the emergency department instead. Did not fall to the ground. Patient states he has been feeling lightheaded since yesterday. Denies any headache. No pain complaints. No fever chills or night sweats. No obvious sick contacts. Patient when he sits still states that he does not feel dizzy however when he turns his head or stands up quickly feels as if he is drunk. The ROS documented in this emergency department record has been reviewed and confirmed by me. Those systems with pertinent positive or negative responses have been documented in the HPI. All other systems are other negative and/or noncontributory. - Related Data Home Medications Medication Instructions Recorded Confirmed No Known Home Medications 09/03/24 09/03/24 Allergies Allergy/AdvReac Type Severity Reaction Status Date / Time No Known Allergies Allergy Verified 09/03/24 13:22 Review of Systems ROS Statement: Those systems with pertinent positive or pertinent negative responses have been documented in the HPI. ROS Other: All systems not noted in ROS Statement are negative. 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 Cardiovascular: Heart regular rate and rhythm Chest: Able to complete full sentences, no retractions, no tachypnea Abdomen: abdomen soft, non-tender, non-distended, no organomegaly Musculoskeletal: Pulses present and equal in all extremities, no peripheral edema Motor: no focal deficits noted Neurological: CN II-XII grossly intact, no focal motor or sensory deficits noted, right gaze nystagmus with fast phase to the right Skin: Intact with no visualized rashes Psych: Normal affect and mood Limitations: no limitations Course Vital Signs 09/03/24 09/03/24 09/03/24 11:25 12:59 13:53 Temperature 97.6 F Pulse Rate 61 65 68 Respiratory 18 18 Rate Blood Pressure 216/94 195/98 182/82 O2 Sat by Pulse 97 98 95 Oximetry EKG Findings - EKG Comments: EKG Findings:: My EKG interpretation: Ventricular rate 59, sinus bradycardia,. 181, QRS 87, QTc 418. No [place] prolongation, no QTC prolongation, no ST or T-wave changes noted. E EKG compared from July 15, 2014 showing new T wave inversions in inferior and lateral precordial leads. Overall this EKG is nonspecific Medical Decision Making - Medical Decision Making Was pt. sent in by a medical professional or institution (, PA, TRANSPORT DRIVER, urgent care, hospital, or custodial...) When possible be specific @ -No Did you speak to anyone other than the patient for history (EMS, parent, family, police, friend...)? What history was obtained from this source @ -No Did you review nursing and triage notes (agree or disagree)? Why? @ -I reviewed and agree with nursing and triage notes Were old charts reviewed (outside hosp., previous admission, EMS record, old EKG, old radiological studies, urgent care reports/EKG's, custodial records)? Report findings @ -No old charts were reviewed Differential Diagnosis (chest pain, altered mental status, abdominal pain women, abdominal pain men, vaginal bleeding, musculoskeletal, weakness, fever, dyspnea, syncope, headache, dizziness, GI bleed, back pain, seizure, CVA, palpatations, mental health)? @ -Differential Dizziness: Benign paroxysmal positional Vertigo, Meniere's disease, otitis media, acoustic neuroma, vertebrobasilar insufficiency, cerebellar stroke, encephalitis, hypovolemic, arrhythmia, coronary artery syndrome, anemia, this is not meant to be an all-inclusive list EKG interpreted by me (3pts min.). @ -As above X-rays interpreted by me (1pt min.). @ -None done CT interpreted by me (1pt min.). @ - U/S interpreted by me (1pt. min.). @ -None done What testing was considered but not performed or refused? (CT, X-rays, U/S, labs)? Why? @ -None What meds were considered but not given or refused? Why? @ -None Was smoking cessation discussed for >3mins.? @ -No Were there social determinants of health that impacted care today? How? (Homelessness, low income, unemployed, alcoholism, drug addiction, transportation, low edu. Level, literacy, decrease access to med. care, detention, rehab)? @ -No Was there de-escalation of care discussed even if they declined (Discuss DNR or withdrawal of care, Hospice)? DNR status @ -No What co-morbidities impacted this encounter? (DM, HTN, Smoking, COPD, CAD, Cancer, CVA, ARF, Chemo, Hep., AIDS, mental health diagnosis, sleep apnea, morbid obesity)? @ -None Was patient admitted / discharged? Hospital course, mention meds given and route, prescriptions, significant lab abnormalities, going to OR and other pertinent info. @ -63-year-old male presents to the emergency department for dizziness precipitated when standing. Vital signs upon arrival are within acceptable limits states that he feels like he is going to pass out when he stands. There is some component of vertigo however he does not have any symptoms at the bedside when going from laying to sitting or turning his head. Seems to be only precipitated by standing and ambulating. Patient was told that he needs to be on certain medications however does not follow-up with a primary care doctor. Patient denies ever being diagnosed with hypertension despite having blood pressure of 216/94. He has been told that he should take blood pressure medications however said that he did not because he thought that he had abnormal blood pressure secondary to eating 2 jelly donuts. Evaluation obtained labs are unremarkable. Viral testing negative. Patient still significantly symptomatic. Disposition options were discussed she is agreeable with hospital admission. Cardiology consulted for recommendations for presyncope Did you discuss the management of the patient with other professionals (professionals i.e. , PA, TRANSPORT DRIVER, lab, RT, psych nurse, group social worker, rotary swaging machine operator, teacher, protective officer, showcase trimmer)? Give summary @ -Case discussed with hospitalist. Case discussed Dr. Dumont who request that patient be started on oral losartan for management of blood pressure Was critical care preformed (if so, how long)? @ -No Undiagnosed new problem with uncertain prognosis? @ -No Drug Therapy requiring intensive monitoring for toxicity (Heparin, Nitro, Insulin, Cardizem)? @ -No Were any procedures done? @ -No Diagnosis/symptom? Acute, or Chronic, or Acute on Chronic? Uncomplicated (without systemic symptoms) or Complicated (systemic symptoms)? @ -Presyncope, symptomatic hypertension Side effects of treatment? @ -No Exacerbation, Progression, or Severe Exacerbation? @ -No Poses a threat to life or bodily function? How? (Chest pain, USA, AR, pneumonia, PE, COPD, DKA, ARF, appy, cholecystitis, CVA, Diverticulitis, Homicidal, Suicidal, threat to staff... and all critical care pts) @ -yes - Lab Data Result diagrams: 09/03/24 12:05 09/03/24 12:05 Lab Results 09/03/24 09/03/24 09/03/24 Range/Units 12:05 12:05 12:05 WBC 11.1 H (3.8-10.6) k/uL RBC 4.59 (4.30-5.90) m/uL Hgb 14.3 (13.0-17.5) gm/dL Hct 42.2 (39.0-53.0) % MCV 91.9 (80.0-100.0) fL MCH 31.2 (25.0-35.0) pg MCHC 33.9 (31.0-37.0) g/dL RDW 13.0 (11.5-15.5) % Plt Count 421 (150-450) k/uL MPV 7.3 Neutrophils % 63 % Lymphocytes % 26 % Monocytes % 6 % Eosinophils % 3 % Basophils % 1 % Neutrophils # 7.0 (1.3-7.7) k/uL Lymphocytes # 2.9 (1.0-4.8) k/uL Monocytes # 0.7 (0-1.0) k/uL Eosinophils # 0.3 (0-0.7) k/uL Basophils # 0.1 (0-0.2) k/uL Sodium 138 (137-145) mmol/L Potassium 3.5 (3.5-5.1) mmol/L Chloride 103 (98-107) mmol/L Carbon Dioxide 28 (22-30) mmol/L Anion Gap 7 mmol/L BUN 12 (9-20) mg/dL Creatinine 0.73 (0.66-1.25) mg/dL Est GFR (CKD-EPI)AfAm >90 (>60 ml/min/1.73 sqM) Est GFR (CKD-EPI)NonAf >90 (>60 ml/min/1.73 sqM) Glucose 136 H (74-99) mg/dL Calcium 9.0 (8.4-10.2) mg/dL Influenza Type A (PCR) Not Detected (Not Detectd) Influenza Type B (PCR) Not Detected (Not Detectd) RSV (PCR) Not Detected (Not Detectd) SARS-CoV-2 (PCR) Not Detected (Not Detectd) Disposition Clinical Impression: Pre-syncope Disposition: ADMITTED IP TO THIS HOSP Condition: Fair Referrals: Vito Taveras DO [Primary Care Provider] - 1-2 days Decision Time: 14:42
[2024-09-03 12:17] LABS: Basophils # (A) 0.1 k/uL (0-0.2); Basophils % (A) 1 %; Eosinophils # (A) 0.3 k/uL (0-0.7); Eosinophils % (A) 3 %; HCT 42.2 % (39.0-53.0); HGB 14.3 gm/dL (13.0-17.5); Lymphocytes # (A) 2.9 k/uL (1.0-4.8); Lymphocytes % (A) 26 %; MCH 31.2 pg (25.0-35.0); MCHC 33.9 g/dL (31.0-37.0); MCV 91.9 fL (80.0-100.0); Mean Platelet Volume 7.3; Monocytes # (A) 0.7 k/uL (0-1.0); Monocytes % (A) 6 %; Neutrophils % (A) 63 %; Platelet Count 421 k/uL (150-450); RBC 4.59 m/uL (4.30-5.90); WBC 11.1 k/uL (3.8-10.6)
[2024-09-03 12:40] LABS: African American GFR (CKD) >90 (>60 ml/min/1.73 sqM); Anion Gap 7 mmol/L; Blood Urea Nitrogen 12 mg/dL (9-20); Carbon Dioxide 28 mmol/L (22-30); Chloride 103 mmol/L (98-107); Glucose 136 mg/dL (74-99); Non-African American GFR(CKD) >90 (>60 ml/min/1.73 sqM); Potassium 3.5 mmol/L (3.5-5.1); Sodium 138 mmol/L (137-145)
[2024-09-03] MEDS: METOCLOPRAMIDE 5 MG/ML 2 ML VIAL IVP STA (12:54)
[2024-09-03] MEDS: MECLIZINE 12.5 MG TAB PO STA (12:54)
[2024-09-03] MEDS: SODIUM CHLORIDE 0.9% 1,000 ML IV STA (12:56)
[2024-09-03] MEDS ORDERED: NALOXONE 0.4 MG/ML 1 ML VIAL IV PRN (14:34)
[2024-09-03] MEDS ORDERED: ONDANSETRON 4 MG/2 ML VIAL IVP PRN (14:34)
[2024-09-03] MEDS: LOSARTAN 25 MG TAB PO SCH (14:56)
[2024-09-03] MEDS: SODIUM CHLORIDE 0.9% 1,000 ML IV SCH (14:57)
--- NOTE | 2024-09-03 14:57 | CT ---
EXAMINATION TYPE: CT brain wo con DATE OF EXAM: 09/03/2024 COMPARISON: 04/26/2021 INDICATION: dizziness, htn DLP: 1188.1 mGycm, Automated exposure control for dose reduction was used. CONTRAST: None CT of the brain is performed utilizing 3 mm thick sections through the posterior fossa and 3 mm thick sections through the remaining calvarium. Study is performed within 24 hours of arrival to the hosp ital. No abnormal hyperdensity is present to suggest an acute intracranial hemorrhage. No mass lesion is evident. No acute infarcts are evident. Ventricles and sulci are appropriate for the patient age. Paranasal sinuses and mastoid air cells within the [id number] are clear. IMPRESSION: 1. No acute intracranial process. Follow up MRI can be performed as clinically indicated. [facility], Workstation: [facility], 09/03/2024 2:54 PM
--- NOTE | 2024-09-03 22:05 | P.HPIM ---
History of Present Illness H&P Date: 09/03/24 Chief Complaint: Dizziness Patient is a 63-year-old male with a past medical history of hypertension currently not taking any medications, currently everyday smoker and occasional marijuana use presents to ER with complaints of dizziness and lightheadedness. Patient states that his dizziness started yesterday. Today patient states that he went to [employer] and felt very dizzy and started having cold sweats. He walked to his car and drove to ER. Patient was also complaining of headache. [place] like room spinning and almost passed out. Dizziness worsens with movement or getting out of bed. Denied any loss of consciousness. Denied any focal weakness. No visual changes. No complaints of dysarthria or difficulty finding words. Patient denied any recent illnesses. Denied any recent travel. Patient is supposed to take 1 blood pressure medication but he has not been taking for a long time. EKG on admission showed sinus bradycardia with heart rate 59 CT head showed no acute intracranial process. Laboratory showed WBC 11.0 hemoglobin 14.3 and platelets 421 sodium 138 potassium 3.5 chloride 102 bicarb is 28 BUN 12 and creatinine 0.73 and blood sugar 136. Troponin x 1 negative. Clinically ABRS and COVID-19 PCR not detected. Review of Systems Constitutional: Patient denies any fever or chills . No generalized weakness or weight loss. Abdomen: Patient denied nausea vomiting and diarrhea and abdominal pain. Cardiovascular: Patient denies any chest pain or short of breath no palpitations. Respiratory: patient denied any cough or sputum production. No shortness of breath Neurologic: Patient denied any numbness or tingling. Patient does have dizziness and headache. Musculoskeletal: Patient denies any complaints of joint swelling or deformity. Skin: Negative Psychiatric: Negative Endocrine: No heat or cold intolerance. No recent weight gain. Genitourinary: No dysuria or hematuria. 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 Past Anesthesia/Blood Transfusion Reactions: No Reported Reaction Past Psychological History: No Psychological Hx Reported Smoking Status: Current every day smoker Past Alcohol Use History: Occasional Past Drug Use History: Marijuana Medications and Allergies Home Medications Medication Instructions Recorded Confirmed Type No Known Home Medications 09/03/24 09/03/24 History Allergies Allergy/AdvReac Type Severity Reaction Status Date / Time No Known Allergies Allergy Verified 09/03/24 13:22 Physical Exam Vitals: Vital Signs Temp Pulse Pulse Pulse Pulse Resp BP 09/03/24 20:37 63 18 180/81 09/03/24 18:27 98 F 72 18 181/84 09/03/24 15:32 64 68 67 09/03/24 14:49 65 20 181/84 09/03/24 13:53 68 182/82 09/03/24 12:59 65 18 195/98 09/03/24 11:25 97.6 F 61 18 216/94 BP BP BP Pulse Ox 09/03/24 20:37 96 09/03/24 18:27 96 09/03/24 15:32 214/107 226/119 205/102 09/03/24 14:49 97 09/03/24 13:53 95 09/03/24 12:59 98 09/03/24 11:25 97 Intake and Output 09/03/24 09/03/24 09/03/24 06:59 14:59 22:59 Other: Weight 120.202 kg PHYSICAL EXAMINATION: Patient is lying in the bed, appears to be in mild discomfort., awake alert and oriented.. HEENT: Normocephalic. Neck is supple. Pupils reactive. Nostrils clear. Oral cavity is moist. Neck reveals no JVD, carotid bruits, or thyromegaly. CHEST EXAMINATION: Trachea is central. Symmetrical expansion. Lung carroll clear to auscultation and percussion. CARDIAC: Normal S1, S2 with no gallops. No murmurs ABDOMEN: Soft. Bowel sounds normal. No organomegaly. No abdominal bruits. Extremities: reveal no edema. No clubbing or cyanosis Neurologically awake, alert, oriented x3 with well-coordinated movements. No focal deficits noted Skin: No rash or skin lesions. Psychiatric: Coperative. Nonsuicidal Musculoskeletal: No joint swelling or deformity. Normal range of motion. Results CBC & Chem 7: 09/03/24 12:05 09/03/24 12:05 Labs: Abnormal Lab Results - Last 24 Hours (Table) 09/03/24 09/03/24 Range/Units 12:05 12:05 WBC 11.1 H (3.8-10.6) k/uL Glucose 136 H (74-99) mg/dL Thrombosis Risk Factor Assmnt - DVT/VTE Prophylaxis DVT/VTE Prophylaxis: Pharmacologic Prophylaxis ordered Assessment and Plan Assessment: Dizziness and near syncopal episode Hypertensive urgency Sinus bradycardia Noncompliance with medications Morbid obesity with BMI of 40.3 Ongoing nicotine addiction DVT prophylaxis with heparin subcu Plan: Patient will be continued on telemonitoring. Troponin x [address] head s howed no acute intracranial process. Patient will be started on losartan and nifedipine. Orthostatic vitals were ordered. Continue to titrate blood pressure medications. 2D echocardiogram was ordered and cardiology consult for evaluation. Patient was also given a dose of meclizine in the ER. Continue to follow closely. Smoking cessation has been counseled. Discussed with the patient and his at bedside in detail. Time with Patient: Greater than 30
[2024-09-03] MEDS: NIFEdipine 10 MG CAP PO SCH (22:28)
[2024-09-04] MEDS: HEPARIN SODIUM,PORCINE 5,000 UNIT/ML 1 ML VIAL SQ SCH (01:57)
--- NOTE | 2024-09-04 07:31 | XR ---
EXAMINATION TYPE: XR chest 1V DATE OF EXAM: 09/04/2024 COMPARISON: 12/25/2017 HISTORY: 63-year-old male near-syncope TECHNIQUE: Single frontal view of the chest is obtained. FINDINGS: Portable exam further limited by body habitus. Hazy densities likely relate to overlying s oft tissue density. Heart appears mildly enlarged. No sarah consolidation or pleural effusion seen. IMPRESSION: Portable exam further limited by body habitus. Mild cardiomegaly. No definite acute proc ess. [facility], , 09/04/2024 7:28 AM
--- NOTE | 2024-09-04 07:45 | US ---
EXAMINATION TYPE: US carotid duplex BILAT DATE OF EXAM: 09/04/2024 COMPARISON: NONE CLINICAL INDICATION: Male, 63 years old with history of Near Syncope; syncope TECHNIQUE: Grayscale, color Doppler and spectral Doppler evaluation of the bilateral carotid systems and vertebral arteries. Indirect Doppler criteria was utilized. FINDINGS: EXAM MEASUREMENTS: RIGHT: Peak Systolic Velocity (PSV) cm/sec ----- Right CCA: 70.1 ----- Right ICA: 84.3 ----- Right ECA: 176 ICA/CCA ratio: 1.2 RIGHT: End Diastole cm/sec ----- Right CCA: 11.3 ----- Right ICA: 16.6 ----- Right ECA: 19.9 LEFT: Peak Systolic Velocity (PSV) cm/sec ----- Left CCA: 96.2 ----- Left ICA: 73.5 ----- Left ECA: 189 ICA/CCA ratio: 0.76 LEFT: End Diastole cm/sec ----- Left CCA: 14.8 ----- Left ICA: 19.9 ----- Left ECA: 17.8 VERTEBRALS (direction of flow): Right Vertebral: Not seen Left Vertebral: Antegrade Rhythm: Normal SCRAP PREPARER NOTES: Mild plaque seen. No elevated velocities noted IMPRESSION: 1. No hemodynamically significant internal carotid artery stenosis on either side. 2. Unable to visualize the right vertebral artery. Criteria for Assigning % of Stenosis / Diameter reduction (Estimation based on the indirect measurements of the internal carotid artery velocities (ICA PSV). 1. Normal (no stenosis)=ICA PSV < 125 cm/s: ratio < 2.0: ICA EDV<40 cm/s. 2. Less than 50% stenosis=ICA PSV < 125 cm/s: ratio < 2.0: ICA EDV<40 cm/s. 3. 50 to 69% stenosis=ICA PSV of 125 to 230 cm/s: ration 2.0 ? 4.0: ICA EDV 40-100 cm/s. 4. Greater than 70% stenosis to near occlusion= ICA PSV > 230 cm/s: ratio > 4.0: ICA EDV > 100 cm/s. 5. Near occlusion= ICA PSV velocities may be low or undetectable: variable ratio and ICA EDV. 6. Total occlusion=unable to detect flow. [facility], , 09/04/2024 7:42 AM
[2024-09-04] MEDS: LOSARTAN 50 MG TAB PO SCH (08:28)
[2024-09-04] MEDS: amLODIPine 10 MG TAB PO SCH (08:28)
[2024-09-04 08:29] LABS: Basophils # (A) 0.07 X 10*3/uL (0.00-0.10); Basophils % (A) 0.6 %; Eosinophils # (A) 0.22 X 10*3/uL (0.04-0.35); Eosinophils % (A) 1.8 %; HCT 45.3 % (39.6-50.0); HGB 15.1 g/dL (13.0-17.0); Lymphocytes # (A) 2.93 X 10*3/uL (0.90-5.00); Lymphocytes % (A) 23.6 %; MCHC 33.3 g/dL (32.0-37.0); MCV 89.9 FL (80.0-97.0); Mean Platelet Volume 10.4 FL (9.5-12.2); Monocytes # (A) 1.21 X 10*3/uL (0.20-1.00); Monocytes % (A) 9.8 %; NRBC Per 100 WBC 0 X 10*3/uL (0.00-0.01); Neutrophils % (A) 63.7 %; Platelet Count 454 X 10*3/uL (140-440); RBC 5.04 X 10*6/uL (4.40-5.60); RDW 13.2 % (11.5-14.5); WBC 12.39 X 10*3/uL (4.50-10.00)
[2024-09-04 08:43] LABS: BUN/Creat Ratio 12.86 Ratio (12.00-20.00); Calcium 9.2 mg/dL (8.7-10.3); Carbon Dioxide 24.8 mmol/L (21.6-31.8); Chloride 101 mmol/L (96-109); Glucose 118 mg/dL (70-110); Potassium 3.8 mmol/L (3.5-5.5); Sodium 138 mmol/L (135-145)
--- NOTE | 2024-09-04 10:06 | CONS ---
CONSULTATION HISTORY OF PRESENT ILLNESS: Brent is a 63-year-old gentleman, who is admitted to hospital with hypertensive urgency. He has history of hypertension, but has not been taking his medications regularly. In fact has not been taking any medications at all. He had episodes of dizziness over the last 2 days and yesterday felt unwell, came to the hospital and his blood pressures were severely elevated. On his initial presentation, he was at 205/102 and was treated with Procardia and 25 mg of losartan. Blood pressures have improved somewhat, but this morning blood pressure is back up at 187/87. The patient denies chest pain, difficulty in breathing, palpitations, or syncope. There is no history of focal neurological deficits. The dizziness has improved. I am starting the patient on 10 mg of amlodipine and 50 mg of losartan. I will give another dose of losartan this evening if necessary. He had a troponin that was negative, TSH that was normal. Potassium is 3.8, creatinine is normal at 0.7. White cell count is slightly elevated, but the hemoglobin is normal. A chest x-ray was negative. An EKG showed sinus rhythm and extensive ST-T wave changes secondary to left ventricular hypertrophy. He had a carotid duplex study that did not show significant carotid stenosis and a CT scan of the brain that was negative for any acute pathology. PAST MEDICAL HISTORY: Significant for hypertension. MEDICATIONS: None. ALLERGIES: None. FAMILY HISTORY: Negative for premature coronary artery disease. SOCIAL HISTORY: Denies smoking, ETOH abuse, or drug abuse. REVIEW OF SYSTEMS: 14 out of 14 review of systems has been performed. Pertinents are as documented. PHYSICAL EXAMINATION: GENERAL: The patient is comfortable at rest. VITAL SIGNS: Blood pressure is elevated. NECK: There is no jugular venous distention. Carotid upstroke is normal. There is no bruit. CHEST: Reveals good air entry bilaterally. HEART: Reveals first and second heart sounds. An S4 is heard. ABDOMEN: Soft. EXTREMITIES: Did not reveal any edema. Peripheral pulses are felt. Pulses are equal and normal in both upper extremities. MICROELECTRONICS TECHNICIAN: Did not reveal any focal neurological deficits. ASSESSMENT AND PLAN: Hypertensive urgency. PLAN: I am starting the patient on losartan and amlodipine. I will obtain a 2D echo and I will keep adjusting medications until blood pressures are well controlled. I do not see the need to do workup for secondary hypertension at this time as he has history of hypertension and has not really been taking any medications, but if necessary, I will investigate him further down the road. CROW / SAEN: [id number] /
--- NOTE | 2024-09-04 11:53 | CA ---
Transthoracic Echo Report Name: Brent Downey Age: 63 Gender: M : 1960 Exam Date: 09/04/2024 08:29 Exam Location: [place] [facility] Ht (in): 68 Wt (lb): 265 Ordering Physician: Luc Gould MD Attending/Referring Phys: Rd Lab Technician Rose Cleary RDCS Procedure CPT: Indications: near syncope Cardiac Hx: Technical Quality: Fair Contrast 1: Total Dose (mL): Contrast 2: Total Dose (mL): MEASUREMENTS (Male / Female) Normal Values 2D ECHO LV Diastolic Volume MOD BP 165.8 cm??? 67 - 155 / 56 - 104 cm??? LV Systolic Volume MOD BP 61.7 cm??? 22 - 58 / 19 - 49 cm??? LV Ejection Fraction MOD BP 62.8 % >= 55 % LV Cardiac Index MOD BP 2966.2 cm???/min???m??? LV Diastolic Volume MOD 4C 162.0 cm??? LV Systolic Volume MOD 4C 52.0 cm??? LV Ejection Fraction MOD 4C 67.9 % LV Cardiac Index MOD 4C 3132.5 cm???/min???m??? LV Diastolic Length 4C 9.2 cm LV Systolic Length 4C 7.1 cm LV Diastolic Volume MOD 2C 164.0 cm??? LV Systolic Volume MOD 2C 69.3 cm??? LV Ejection Fraction MOD 2C 57.7 % LV Cardiac Index MOD 2C 2695.4 cm???/min???m??? LV Diastolic Length 2C 9.5 cm LV Systolic Length 2C 7.6 cm LA Volume 72.6 cm??? 18 - 58 / 22 - 52 cm??? LA Volume Index 29.5 cm???/m??? 16 - 28 cm???/m??? DOPPLER AV Peak Velocity 190.7 cm/s AV Peak Gradient 14.6 mmHg AV Mean Velocity 125.5 cm/s AV Mean Gradient 7.3 mmHg AV Velocity Time Integral 33.3 cm LVOT Peak Velocity 135.1 cm/s LVOT Peak Gradient 7.3 mmHg LVOT Velocity Time Integral 24.8 cm MV Area PHT 3.2 cm??? Mitral E Point Velocity 52.6 cm/s Mitral A Point Velocity 56.9 cm/s Mitral E to A Ratio 0.9 MV Deceleration Time 238.1 ms FINDINGS Left Ventricle Left ventricular ejection fraction is estimated at 60-65 %. Mildly increased left ventricular diastolic volume. Mildly increased left ventricular systolic volume. No obvious regional wall motion abnormalities. Hyperdynamic left ventricular systolic function. Right Ventricle Normal right ventricular size and function. Unable to estimate the right ventricular systolic pressure. Right Atrium Normal right atrial size. Left Atrium Mildly increased left atrial volume. Mildly increased left atrial area. Mitral Valve Structurally normal mitral valve. No mitral stenosis, regurgitation or prolapse. Aortic Valve Aortic valve not well visualized. No aortic valve stenosis or regurgitation. Tricuspid Valve Structurally normal tricuspid valve. No tricuspid stenosis, regurgitation or prolapse. Pulmonic Valve Pulmonic valve not well visualized. Pericardium No pericardial effusion. Aorta Aortic root and proximal ascending aorta not well visualized. CONCLUSIONS Normal LV function Previewed by: Dr. Rashel Gloria MD (Electronically Signed) Final Date: 04 September 2024 11:52
[2024-09-04] MEDS: LOSARTAN 50 MG TAB PO STA (15:14)
[2024-09-04] MEDS: cloNIDine HCL 0.1 MG TAB PO PRN (16:39)
[2024-09-04] MEDS ORDERED: ACETAMINOPHEN TAB 325 MG TAB PO PRN (18:50)
[2024-09-04] MEDS: hydrALAZINE HCL 25 MG TAB PO SCH (18:56)
--- NOTE | 2024-09-05 04:09 | P.PN ---
Subjective Progress Note Date: 09/04/24 Patient is a 63-year-old male with a past medical history of hypertension currently not taking any medications, currently everyday smoker and occasional marijuana use presents to ER with complaints of dizziness and lightheadedness. Patient states that his dizziness started yesterday. Today patient states that he went to [employer] and felt very dizzy and started having cold sweats. He walked to his car and drove to ER. Patient was also complaining of headache. [place] like room spinning and almost passed out. Dizziness worsens with movement or getting out of bed. Denied any loss of consciousness. Denied any focal weakness. No visual changes. No complaints of dysarthria or difficulty finding words. Patient denied any recent illnesses. Denied any recent travel. Patient is supposed to take 1 blood pressure medication but he has not been taking for a long time. EKG on admission showed sinus bradycardia with heart rate 59 CT head showed no acute intracranial process. Laboratory showed WBC 11.0 hemoglobin 14.3 and platelets 421 sodium 138 potassium 3.5 chloride 102 bicarb is 28 BUN 12 and creatinine 0.73 and blood sugar 136. Troponin x 1 negative. Clinically ABRS and COVID-19 PCR not detected. 09/04/2024 Patient is seen in follow-up today continues to report similar symptoms of l ightheadedness and dizziness. Blood pressures have been completely uncontrolled in the 180s systolic and cardiology has been evaluated making adjustments to medications and a 2D echo is ordered at this time. Patient does sound somewhat congested on exam and virology testing was negative. Patient reports he has not been sick and has not been around sick people. Will consult neurology and appreciate input and recommendations.. Review of systems: Constitutional: No reports of fatigue, fever, or chills Cardiovascular: No reports of chest pain or palpitations, reports feeling lightheaded and dizzy when getting up Respiratory: No reports of shortness of breath or cough GI: No reports of nausea, vomiting, or diarrhea : No reports of dysuria or retention Neurovascular: No reports of weakness or numbness All medications have been reviewed PHYSICAL EXAMINATION: Patient is sitting up in the bed, well-developed, morbidly obese, awake alert and oriented.. HEENT: Normocephalic. Neck is supple. Pupils reactive. Nostrils clear. Oral cavity is moist. Neck reveals no JVD, carotid bruits, or thyromegaly. CHEST EXAMINATION: Trachea is central. Symmetrical expansion. Lung carroll clear to auscultation and percussion. CARDIAC: Normal S1, S2 with no gallops. No murmurs ABDOMEN: Soft. Obese. Bowel sounds normal. No organomegaly. No abdominal bruits. Extremities: reveal no edema. No clubbing or cyanosis Neurologically awake, alert, oriented x3 with well-coordinated movements. No fo lizzie deficits noted Skin: No rash or skin lesions. Psychiatric: Cooperative. Non-suicidal Musculoskeletal: No joint swelling or deformity. Normal range of motion. Assessment: Dizziness and near syncopal episode Hypertensive urgency Sinus bradycardia Noncompliance with medications Morbid obesity with BMI of 40.3 Ongoing THC addiction Former smoker GI prophylaxis DVT prophylaxis with heparin subcu Full code Plan: Patient will be continued on telemonitoring. Troponin x [address] head showed no acute intracranial process. Patient being evaluated by cardiology making adjustments to medications. Orthostatic vitals were ordered. Patient continues to report symptoms of dizziness and lightheadedness and 2D echo is ordered and pending. Will consult neurology and appreciate input and recommendations Hemoglobin A1c is pending at this time The impression and plan of care has been dictated by Liza Kwan, Nurse Practitioner as directed. Dr. Bryanna MD I have performed a history and examination and MDM of this patient, discussed the same with the dictator, and agree with the dictator's assessment and plan as written ,documented as a scribe. Based on total visit time, I have performed more than 50% of the visit. Objective - Vital Signs Vital signs: Vital Signs Temp 98.8 F 09/04/24 07:00 Pulse 67 09/04/24 07:00 Resp 17 09/04/24 07:00 BP 187/87 09/04/24 07:00 Pulse Ox 96 09/04/24 07:00 FiO2 Intake & Output 09/03/24 09/04/24 09/04/24 18:59 06:59 18:59 Intake Total 360 Balance 360 Weight 120.202 kg Intake: Oral 360 Other: Voiding Method Toilet # Voids 2 - Labs CBC & Chem 7: 09/04/24 04:09 09/04/24 04:09 Labs: Abnormal Lab Results - Last 24 Hours (Table) 09/03/24 09/03/24 09/04/24 Range/Units 12:05 12:05 04:09 WBC 11.1 H (3.8-10.6) k/uL Plt Count (140-440) X 10*3/uL Immature Gran # (0.00-0.04) X 10*3/uL Neutrophils # (1.80-7.70) X 10*3/uL Monocytes # (0.20-1.00) X 10*3/uL Anion Gap (4.00-12.00) mmol/L Glucose 136 H (74-99) mg/dL Hemoglobin A1c 6.5 H (<=6.0) % 09/04/24 09/04/24 Range/Units 04:09 04:09 WBC 12.39 H (3.8-10.6) k/uL Plt Count 454 H (140-440) X 10*3/uL Immature Gran # 0.06 H (0.00-0.04) X 10*3/uL Neutrophils # 7.90 H (1.80-7.70) X 10*3/uL Monocytes # 1.21 H (0.20-1.00) X 10*3/uL Anion Gap 12.20 H (4.00-12.00) mmol/L Glucose 118 H (74-99) mg/dL Hemoglobin A1c (<=6.0) %
[2024-09-05 08:38] LABS: HCT 46.4 % (39.6-50.0); HGB 15.4 g/dL (13.0-17.0); MCH 30.8 pg (27.0-32.0); MCHC 33.2 g/dL (32.0-37.0); MCV 92.8 FL (80.0-97.0); Mean Platelet Volume 10.6 FL (9.5-12.2); NRBC Per 100 WBC 0 X 10*3/uL (0.00-0.01); Platelet Count 475 X 10*3/uL (140-440); RDW 13.6 % (11.5-14.5); WBC 11.73 X 10*3/uL (4.50-10.00)
[2024-09-05 09:07] LABS: Magnesium 2.2 mg/dL (1.5-2.4)
[2024-09-05 09:08] LABS: ALT 18 U/L (10-49); AST 17 U/L (14-35); Albumin 4.1 g/dL (3.8-4.9); Albumin/Globulin Ratio 1.58 Ratio (1.60-3.17); Alkaline Phosphatase 82 U/L (41-126); Blood Urea Nitrogen 15.2 mg/dL (9.0-27.0); Calcium 9.5 mg/dL (8.7-10.3); Carbon Dioxide 27.3 mmol/L (21.6-31.8); Chloride 102 mmol/L (96-109); Globulin 2.6 g/dL (1.6-3.3); Glucose 121 mg/dL (70-110); Potassium 4.2 mmol/L (3.5-5.5); Sodium 140 mmol/L (135-145); Total Bilirubin 0.5 mg/dL (0.3-1.2); Total Protein 6.7 g/dL (6.2-8.2)
[2024-09-05] MEDS: hydrALAZINE HCL 50 MG TAB PO SCH ×2 (09:19→16:05)
[2024-09-05] MEDS: LOSARTAN 50 MG TAB PO SCH (09:19)
[2024-09-05 10:01] LABS: Basophils # (A) 0.12 X 10*3/uL (0.00-0.10); Eosinophils # (A) 0.32 X 10*3/uL (0.04-0.35); Eosinophils % (A) 2.7 %; Lymphocytes # (A) 3.41 X 10*3/uL (0.90-5.00); Lymphocytes % (A) 29.1 %; Monocytes % (A) 15.3 %; Neutrophils # (A) 6.03 X 10*3/uL (1.80-7.70); Neutrophils % (A) 51.5 %; RBC Morphology Normal (Normal)
--- NOTE | 2024-09-05 11:53 | P.PN ---
Subjective Progress Note Date: 09/05/24 This is a 63-year-old male presented to the hospital with hypertensive urgency and's patient was started on losartan and amlodipine. Yesterday evening, sweat box attendant on-call was contacted and patient was started on hydralazine 25 mg 4 times daily as well. His blood pressure this morning is 162/87, heart rate is in the 60s, pulse ox 95% on room air. Repeat blood work reveals WBC 11.7, hemoglobin 15.4. Electrolytes are all normal with creatinine of 1.0. Echocardiogram reveals EF of 60 to 65%. Patient is currently maintained on amlodipine 10 mg daily, hydralazine 25 mg 4 times daily, losartan 100 mg daily. Patient was not taking his medications as directed prior to this hospitalization. He denies having any chest pain, shortness of breath, palpitations. Dizziness is improved. Physical examination: Gen: This is a 63-year-old male in no acute distress VS: reviewed HEENT: Head is atraumatic, normocephalic. Pupils equal, round. Sclerae is anicteric. NECK: Supple. No JVD. LUNGS: Clear to auscultation. No wheezes or rhonchi. No intercostal retractions. HEART: First and second heart sounds. S4 heard. ABDOMEN: Soft No tenderness. EXTREMITIES: No pedal edema. No calf tenderness. Peripheral pulses are felt. Pulses are equal and normal in both upper extremities NEUROLOGICAL: Patient is awake, alert and oriented x3. Assessment: Hypertensive urgency Plan: Continue current medications: Amlodipine 10 mg daily, losartan 100 mg daily Increase hydralazine to 50 mg 4 times daily Continue to monitor blood pressure closely Patient may require additional medication adjustments. Further recommendations to follow based upon clinical course Nurse practitioner note has been reviewed, I agree with documented findings and plan of care. Patient was seen and examined. Objective - Vital Signs Vital signs: Vital Signs Temp 97.6 F 09/05/24 07:40 Pulse 61 09/05/24 07:40 Resp 16 09/05/24 01:50 BP 162/87 09/05/24 07:40 Pulse Ox 95 09/05/24 07:40 FiO2 21 09/04/24 20:04 Intake & Output 09/04/24 09/05/24 09/05/24 18:59 06:59 18:59 Intake Total 118 Balance 118 Intake: Oral 118 Other: Voiding Method Toilet Toilet # Voids 3 1 # Bowel Movements 1 - Labs CBC & Chem 7: 09/05/24 04:47 09/05/24 04:47 Labs: Abnormal Lab Results - Last 24 Hours (Table) 09/04/24 09/04/24 09/04/24 Range/Units 04:09 04:09 04:09 WBC 12.39 H (4.50-10.00) X 10*3/uL Plt Count 454 H (140-440) X 10*3/uL Immature Gran # 0.06 H (0.00-0.04) X 10*3/uL Neutrophils # 7.90 H (1.80-7.70) X 10*3/uL Monocytes # 1.21 H (0.20-1.00) X 10*3/uL Anion Gap 12.20 H (4.00-12.00) mmol/L Glucose 118 H (70-110) mg/dL Hemoglobin A1c 6.5 H (<=6.0) %
[2024-09-05] MEDS: hydrALAZINE HCL 50 MG TAB PO STA (14:10)
[2024-09-05] MEDS: cloNIDine HCL 0.1 MG TAB PO SCH (16:05)
--- NOTE | 2024-09-06 00:10 | P.CNNES ---
History of Present Illness Consult date: 09/05/24 Requesting physician: Liza Kwan Reason for Consult: dizziness, lightedheadedness, htn History of Present Illness: Patient is a 63-year-old right-handed male came to the hospital 2 days ago, on 09/03/2024 at 11:03 AM for dizziness. Patient states that on the day of admission, he was at [employer], pushing the big cart and felt as if he was drunk, felt woozy, dizzy, lightheaded with vertigo. She decided to drive to the hospital, and came to the ER. He was still dizzy when he got here. He did feel slightly nauseous, and queasy but did not vomit. Denies any upper respiratory infection. He was also noticing some cold sweats in the ER. Patient denies any focal numbness, tingling, weakness, slurred speech facial droop or loss of vision. Patient states he has been having some runny nose on the right side for last couple weeks. Patient states that the day prior to admission, on Monday, he was slightly shaky on getting up, but nothing like what he experienced on the day of admission. He would lay down and would be fine. Patient states that he had no problems sitting, laying, or even standing up, but after he has been standing for a while, he would feel dizzy. It would last for about 5-10 seconds. Vital signs on arrival blood pressure 2016/94, pulse rate 61, temperature 97.6. Patient had orthostatics checked, and her supine blood pressure was 205/102, sitting to 114/107 and standing 226/119. Patient has had some temperature spike with Tmax of 100.2 yesterday at 6 PM. Blood test shows WBC 11.1 hemoglobin 14.3, normal platelets. CMP is normal, troponin negative. TSH normal. Influenza, RSV and coronavirus PCR negative. EKG showed sinus bradycardia. CT head showed no acute intracranial process. Follow-up MRI can be performed as clinically indicated. I personally reviewed CT head, agree with the findings. Visualized paranasal sinuses revealed some opacification of the ethmoid air cells, and mild to moderate involvement of bilateral maxillary sinuses. External auditory canals are clear. Chest x-ray showed mild cardiomegaly, no acute process.Patient does not take any medications at home. Patient states he was diagnosed with hypertension about couple years ago at a routine visit to his primary physician Dr. Sheridan Taveras. He was given prescription of some antihypertensive medication, he took for a couple days and then stopped taking it. Patient started smoking since age 13, and has smoked less than one pack per day off and on for a total of around 28 years, quit smoking 3 years ago. He drinks half which are of beer twice a week. Sometimes he drinks Gopal Fenton, and also smokes marijuana. Review of Systems All pertinent positive and negatives mentioned in the HPI, otherwise unremarkable. 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 Past Anesthesia/Blood Transfusion Reactions: No Reported Reaction Past Psychological History: No Psychological Hx Reported Smoking Status: Current every day smoker Past Alcohol Use History: Occasional Past Drug Use History: Marijuana Medications and Allergies Home Medications Medication Instructions Recorded Confirmed Type No Known Home Medications 09/03/24 09/03/24 History Allergies Allergy/AdvReac Type Severity Reaction Status Date / Time No Known Allergies Allergy Verified 09/03/24 13:22 Physical Examination - Vital Signs Vital Signs: Vital Signs Temp Pulse Pulse Pulse Resp BP BP 09/05/24 15:00 73 16 161/83 09/05/24 12:45 61 61 20 09/05/24 12:40 77 77 71 191/93 195/77 09/05/24 08:21 97.6 F 61 21 09/05/24 07:40 97.6 F 61 162/87 09/05/24 01:50 98.4 F 63 16 09/04/24 20:04 09/04/24 20:00 99.5 F 68 70 71 18 195/62 178/89 09/04/24 18:03 100.2 F H 73 17 BP Pulse Ox FiO2 09/05/24 15:00 97 09/05/24 12:45 09/05/24 12:40 178/109 09/05/24 08:21 158/72 95 09/05/24 07:40 95 09/05/24 01:50 190/77 98 09/04/24 20:04 21 09/04/24 20:00 173/75 99 09/04/24 18:03 179/82 95 Intake and Output 09/05/24 09/05/24 09/05/24 06:59 14:59 22:59 Intake Total 236 Balance 236 Intake: Oral 236 Other: Voiding Method Toilet Toilet # Voids 1 2 # Bowel Movements 1 Patient is an elderly male, very pleasant, in no acute distress. Patient is alert awake oriented to time place and person. Speech and language functions are normal. Patient can name and repeat very well. No aphasia or dysarthria. Attention, concentration and fund of knowledge is adequate. On cranial nerve examination, pupils are equal, round and reacting to light, visual carroll are full on confrontation, with no neglect on double simultaneous stimulation. Extraocular muscles are intact with no nystagmus. Face is symmetric, tongue protrudes to the midline. Palatal elevation and sensation normal, hearing and shoulder shrug normal, facial sensation normal. On muscle strength testing, there is no pronator drift and the strength is normal in arms and legs distally and proximally. Deep tendon reflexes are symmetric trace to 1 and plantars downgoing. Sensory to touch is equal with no neglect on double simultaneous stimulation. Cerebellar function showed no ataxia for [id number] testing. No dysdiado chokinesia. No ataxia for [id number] testing on either side. Tone and bulk of muscles normal. Gait deferred.. On general examination, there is no carotid bruit or murmur, S1-S2 audible. Chest is clear on consultation. Abdomen is soft nontender. No organomegaly, bowel sounds present. Peripheral pulses are present. No peripheral edema. Results - Laboratory Findings CBC and BMP: 09/05/24 04:47 09/05/24 04:47 Abnormal Lab Findings: Abnormal Labs 09/03/24 09/03/24 09/04/24 12:05 12:05 04:09 WBC 11.1 H Plt Count Immature Gran # Neutrophils # Monocytes # Basophils # Anion Gap Glucose 136 H Hemoglobin A1c 6.5 H Albumin/Globulin Ratio 09/04/24 09/04/24 09/05/24 04:09 04:09 04:47 WBC 12.39 H 11.73 H Plt Count 454 H 475 H Immature Gran # 0.06 H 0.05 H Neutrophils # 7.90 H Monocytes # 1.21 H 1.80 H Basophils # 0.12 H Anion Gap 12.20 H Glucose 118 H Hemoglobin A1c Albumin/Globulin Ratio 09/05/24 04:47 WBC Plt Count Immature Gran # Neutrophils # Monocytes # Basophils # Anion Gap Glucose 121 H Hemoglobin A1c Albumin/Globulin Ratio 1.58 L Assessment and Plan Assessment: * Acute onset of vertigo, dizziness with some nausea. Symptoms resolved after patient came to the ER. Exact cause is uncertain. Differential diagnosis includes vertigo related to uncontrolled hypertension, cerebellar TIA versus peripheral vestibular dysfunction. Patient has been having some runny nose on the right side for last couple weeks, and the CT head also revealed some opacification of the ethmoid air cells and mild to moderate involvement of bilateral maxillary sinuses. Patient still gets dizziness with prolonged standing, although orthostatics have been negative. * Uncontrolled hypertension * Nonvisualized right vertebral artery on carotid Doppler. * Possible maxillary and ethmoid sinusitis. * Probable diabetes with A1c 6.5. * Obesity * X tobacco use Plan: * Patient's orthostatics have been negative. * Recommended aggressive control of blood pressure. * Carotid Doppler revealed no hemodynamically significant stenosis on either side. Antegrade flow in the left vertebral artery. Right vertebral artery not seen. * We will check CTA of head and neck to rule out vertebral artery stenosis/dissection. * 2-D echo revealed normal left ventricular EF 60-65%. No obvious regional wall motion abnormalities. Hyperdynamic left ventricle systolic system. Mild increase left atrial volume. * Hemoglobin A1c 6.5, suggestive of mild diabetes. IM to address. Probable dietary adjustment, healthy lifestyles * Lipid panel * B12, folate * Start aspirin regimen. We will give aspirin 324 mg 1 dose followed by 81 mg daily. * CT head revealed evidence of maxillary and ethmoid sinusitis. May need course of antibiotic. * Neurology will follow up in thank you for the consult. Time with Patient: Greater than 30
[2024-09-06] MEDS: ASPIRIN 325 MG TAB PO STA (01:22)
[2024-09-06 01:30] VITALS: RESP 18
--- NOTE | 2024-09-06 06:22 | P.PN ---
Subjective Progress Note Date: 09/05/24 Patient is a 63-year-old male with a past medical history of hypertension currently not taking any medications, currently everyday smoker and occasional marijuana use presents to ER with complaints of dizziness and lightheadedness. Patient states that his dizziness started yesterday. Today patient states that he went to [employer] and felt very dizzy and started having cold sweats. He walked to his car and drove to ER. Patient was also complaining of headache. [place] like room spinning and almost passed out. Dizziness worsens with movement or getting out of bed. Denied any loss of consciousness. Denied any focal weakness. No visual changes. No complaints of dysarthria or difficulty finding words. Patient denied any recent illnesses. Denied any recent travel. Patient is supposed to take 1 blood pressure medication but he has not been taking for a long time. EKG on admission showed sinus bradycardia with heart rate 59 CT head showed no acute intracranial process. Laboratory showed WBC 11.0 hemoglobin 14.3 and platelets 421 sodium 138 potassium 3.5 chloride 102 bicarb is 28 BUN 12 and creatinine 0.73 and blood sugar 136. Troponin x 1 negative. Clinically ABRS and COVID-19 PCR not detected. 09/04/2024 Patient is seen in follow-up today continues to report similar symptoms of l ightheadedness and dizziness. Blood pressures have been completely uncontrolled in the 180s systolic and cardiology has been evaluated making adjustments to medications and a 2D echo is ordered at this time. Patient does sound somewhat congested on exam and virology testing was negative. Patient reports he has not been sick and has not been around sick people. Will consult neurology and appreciate input and recommendations.. 09/05/2024 Patient is seen in follow-up today reports some of the dizziness have subsided although when patient is standing at times he will experience lightheaded and dizziness but does not pass out. Blood pressure continues to be uncontrolled and being adjusted per cardiology recommending continue telemetry monitoring and monitored overnight. Neurology following undergoing further workup and carotid ordered along with orthostatics. CT ordered and pending. Review of systems: Constitutional: No reports of fatigue, fever, or chills Cardiovascular: No reports of chest pain or palpitations, reports feeling lightheaded and dizzy when getting up Respiratory: No reports of shortness of breath or cough GI: No reports of nausea, vomiting, or diarrhea : No reports of dysuria or retention Neurovascular: No reports of weakness or numbness All medications have been reviewed PHYSICAL EXAMINATION: Patient is sitting up in the bed, well-developed, morbidly obese, awake alert and oriented.. HEENT: Normocephalic. Neck is supple. Pupils reactive. Nostrils clear. Oral cavity is moist. Neck reveals no JVD, carotid bruits, or thyromegaly. CHEST EXAMINATION: Trachea is central. Symmetrical expansion. Lung carroll clear to auscultation and percussion. CARDIAC: Normal S1, S2 with no gallops. No murmurs ABDOMEN: Soft. Obese. Bowel sounds normal. No organomegaly. No abdominal bruits. Extremities: reveal no edema. No clubbing or cyanosis Neurologically awake, alert, oriented x3 with well-coordinated movements. No focal deficits noted Skin: No rash or skin lesions. Psychiatric: Cooperative. Non-suicidal Musculoskeletal: No joint swelling or deformity. Normal range of motion. Assessment: Dizziness and near syncopal episode, possibly and most likely related to uncontrolled blood pressure Hypertensive urgency Sinus bradycardia Diabetes mellitus, type II, hemoglobin A1c 6.7 Noncompliance with medications Morbid obesity with BMI of 40.3 Ongoing THC addiction Former smoker GI prophylaxis DVT prophylaxis with heparin subcu Full code Plan: Patient will be continued on telemonitoring. Troponin x [address] head showed no acute intracranial process. Patient being evaluated by cardiology making adjustments to medications. Orthostatic vitals were negative. Continued adjustments to medications and cardiology recommended monitoring overnight Patient continues to report symptoms of dizziness and lightheadedness and neurology following undergoing further workup Hemoglobin A1c is mildly elevated at 6.7 suggestive of diabetes. Recommend initiating low-dose metformin and follow-up with primary care provider outpatient Will discuss with other consultations including neurology and cardiology with possible discharge planning in the next 24 hours The impression and plan of care has been dictated by Liza Kwan, Nurse Practitioner as directed. Dr. Lucretia MD I have performed a history and examination and MDM of this patient, discussed the same with the dictator, and agree with the dictator's assessment and plan as written ,documented as a scribe. Based on total visit time, I have performed more than 50% of the visit. Objective - Vital Signs Vital signs: Vital Signs Temp 98.4 F 09/06/24 01:29 Pulse 76 09/06/24 01:29 Resp 18 09/06/24 01:29 BP 154/76 09/06/24 01:29 Pulse Ox 92 L 09/06/24 01:29 FiO2 21 09/04/24 20:04 Intake & Output 09/05/24 09/05/24 09/06/24 06:59 18:59 06:59 Intake Total 776 Balance 776 Intake: Oral 776 Other: Voiding Method Toilet Toilet Toilet # Voids 1 2 1 # Bowel Movements 1 - Labs CBC & Chem 7: 09/05/24 04:47 09/05/24 04:47 Labs: Abnormal Lab Results - Last 24 Hours (Table) 09/05/24 09/05/24 Range/Units 04:47 04:47 WBC 11.73 H (4.50-10.00) X 10*3/uL Plt Count 475 H (140-440) X 10*3/uL Immature Gran # 0.05 H (0.00-0.04) X 10*3/uL Monocytes # 1.80 H (0.20-1.00) X 10*3/uL Basophils # 0.12 H (0.00-0.10) X 10*3/uL Glucose 121 H (70-110) mg/dL Albumin/Globulin Ratio 1.58 L (1.60-3.17) Ratio
[2024-09-06] MEDS: cloNIDine HCL 0.2 MG TAB PO SCH (10:13)
[2024-09-06] MEDS: ASPIRIN 81 MG PO SCH (10:14)
--- NOTE | 2024-09-06 10:14 | P.PN ---
Subjective Progress Note Date: 09/06/24 This is a 63-year-old male presented to the hospital with hypertensive urgency and's patient was started on losartan and amlodipine. 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 His blood pressure this morning is 162/87, heart rate is in the 60s, pulse ox 95% on room air. Repeat blood work reveals WBC 11.7, hemoglobin 15.4. Electrolytes are all normal with creatinine of 1.0. Echocardiogram reveals EF of 60 to 65%. Patient is currently maintained on amlodipine 10 mg daily, hydralazine 25 mg 4 times daily, losartan 100 mg daily. Patient was not taking his medications as directed prior to this hospitalization. He denies having any chest pain, shortness of breath, palpitations. Dizziness is improved. 09/06 Yesterday, we increased hydralazine in the afternoon to 100 mg 3 times daily and also added and Catapres 0.1 mg 3 times daily. This morning, blood pressure is improved but remains elevated. Blood pressure 158/70, heart rate 59, pulse ox 97% on room air. Physical examination: Gen: This is a 63-year-old male in no acute distress VS: reviewed HEENT: Head is atraumatic, normocephalic. Pupils equal, round. Sclerae is anicteric. NECK: Supple. No JVD. LUNGS: Clear to auscultation. No wheezes or rhonchi. No intercostal retractions. HEART: First and second heart sounds. S4 heard. ABDOMEN: Soft No tenderness. EXTREMITIES: No pedal edema. No calf tenderness. Peripheral pulses are felt. Pulses are equal and normal in both upper extremities NEUROLOGICAL: Patient is awake, alert and oriented x3. Assessment: Hypertensive urgency Plan: Continue current medications: Amlodipine 10 mg daily, losartan 100 mg daily, hydralazine 100 mg 3 times daily Increase clonidine to 0.2 mg 3 times daily Patient has been instructed to follow-up with his PCP next week and if blood pressure remains high, clonidine can be increased to 0.3 mg 3 times daily Patient will follow-up with Dr. Inderjit Gloria in 2 weeks. Discussed with patient nonmedication recommendations for hypertension: Weight loss, no alcohol, low-sodium diet, no smoking, obstructive sleep apnea workup. Nurse practitioner note has been reviewed, I agree with documented findings and plan of care. Patient was seen and examined. Objective - Vital Signs Vital signs: Vital Signs Temp 98.4 F 09/06/24 01:29 Pulse 76 09/06/24 01:29 Resp 18 09/06/24 01:29 BP 154/76 09/06/24 01:29 Pulse Ox 92 L 09/06/24 01:29 FiO2 21 09/04/24 20:04 Intake & Output 09/05/24 09/06/24 09/06/24 18:59 06:59 18:59 Intake Total 776 Balance 776 Intake: Oral 776 Other: Voiding Method Toilet Toilet # Voids 2 1 # Bowel Movements 1 - Labs CBC & Chem 7: 09/05/24 04:47 09/05/24 04:47 Labs: Abnormal Lab Results - Last 24 Hours (Table) 09/05/24 09/05/24 Range/Units 04:47 04:47 WBC 11.73 H (4.50-10.00) X 10*3/uL Plt Count 475 H (140-440) X 10*3/uL Immature Gran # 0.05 H (0.00-0.04) X 10*3/uL Monocytes # 1.80 H (0.20-1.00) X 10*3/uL Basophils # 0.12 H (0.00-0.10) X 10*3/uL Glucose 121 H (70-110) mg/dL Albumin/Globulin Ratio 1.58 L (1.60-3.17) Ratio
[2024-09-06 10:57] LABS: Chol/HDL Ratio 4.03 Ratio; LDL Cholesterol,Calculated 141.9 mg/dL (0.0-131.0); VLDL Calculation 15.32 mg/dL (5.00-40.00)
--- NOTE | 2024-09-06 12:31 | CT ---
EXAMINATION TYPE: CT angio head neck DATE OF EXAM: 09/06/2024 COMPARISON: None CLINICAL INDICATION: Male, 63 years old with history of Vertebral artery stenosis, ? r/o dissection;; PHH, HYPERTENSION TECHNIQUE: CTA scan of the head and neck is performed with IV Contrast, patient injected with 65 mL of Isovue 370, axial images are obtained, coronal and sagittal reformatted images are reviewed. 3D re constructed images are created on an independent workstation and reviewed. CT DLP: 564.9 mGycm Automated exposure control for dose reduction was used. NASCET criteria was used in interpretation of this exam? FINDINGS: The brachiocephalic origins are widely patent and no significant stenosis. There is no significant stenosis of the common or internal carotid arteries within the neck. There is no stenosis of the vertebral arteries. There is moderate dolichoectasia of the basilar artery. The v ertebral arteries are widely patent and there is no evidence of dissection. Intracranially, there is no stenosis, segmental occlusion, sizable aneurysm sac or vascular malformat ion. IMPRESSION:. 1. No evidence of vertebral artery dissection. 2. No evidence of occlusive disease within the head or neck. 3. Moderate dolichoectasia of the basilar artery. NASCET criteria was used in interpretation of this exam? [facility], , 09/06/2024 12:28 PM
--- NOTE | 2024-09-06 15:20 | P.PN ---
Subjective Progress Note Date: 09/06/24 Patient was seen for follow-up. Patient states he is feeling much better. Denies any more dizziness. No new focal symptoms. Objective - Vital Signs Vital signs: Vital Signs Temp 97.5 F L 09/06/24 07:30 Pulse 61 09/06/24 07:30 Resp 18 09/06/24 07:30 BP 158/70 09/06/24 07:30 Pulse Ox 97 09/06/24 07:20 FiO2 21 09/04/24 20:04 Intake & Output 09/05/24 09/06/24 09/06/24 18:59 06:59 18:59 Intake Total 776 Balance 776 Intake: Oral 776 Other: Voiding Method Toilet Toilet Toilet # Voids 2 1 1 # Bowel Movements 1 0 - Exam Mental status, speech and language functions are normal. Cranial nerves normal. Muscle strength normal. No ataxia. - Labs CBC & Chem 7: 09/05/24 04:47 09/05/24 04:47 Labs: Abnormal Lab Results - Last 24 Hours (Table) 09/03/24 Range/Units 04:09 Cholesterol 209.00 H (0.00-200.00) mg/dL LDL Cholesterol, Calc 141.9 H (0.0-131.0) mg/dL Assessment and Plan Assessment: * Acute onset of vertigo, dizziness with some nausea. Symptoms resolved after patient came to the ER. Exact cause is uncertain. Differential diagnosis includes vertigo related to uncontrolled hypertension, cerebellar TIA versus peripheral vestibular dysfunction. Patient has been having some runny nose on the right side for last couple weeks, and the CT head also revealed some opacification of the ethmoid air cells and mild to moderate involvement of bilateral maxillary sinuses. Patient still gets dizziness with prolonged standing, although orthostatics have been negative. * Uncontrolled hypertension * Hyperlipidemia * Mild diabetes with A1c 6.5 * Possible maxillary and ethmoid sinusitis. * Probable diabetes with A1c 6.5. * Obesity * X tobacco use Plan: * Patient's orthostatics tested multiple times have been negative. * Recommended aggressive control of blood pressure. * Carotid Doppler revealed no hemodynamically significant stenosis on either side. Antegrade flow in the left vertebral artery. Right vertebral artery not seen. * CTA revealed no evidence of vertebral artery dissection. No evidence of occlusive disease within the head or neck. Moderate dolichoectasia of the basilar artery. * 2-D echo revealed normal left ventricular EF 60-65%. No obvious regional wall motion abnormalities. Hyperdynamic left ventricle systolic system. Mild increase left atrial volume. * Hemoglobin A1c 6.5, suggestive of mild diabetes. IM to address. Probable dietary adjustment, healthy lifestyles * Lipid panel with cholesterol 209, LDL 141.9, HDL 51, triglycerides 76. Start Lipitor 40 mg daily. * B12 323, folate 10.20. Patient's B12 is borderline, we will start B12 1000 mcg orally daily. * Patient has multiple vascular risk factors, needs aggressive control of all risk factors as mentioned above. * Start aspirin regimen. We will give aspirin 324 mg 1 dose followed by 81 mg daily. * CT head revealed evidence of maxillary and ethmoid sinusitis. May need course of antibiotic. * Neurologically clear for discharge.
[2024-09-06] MEDS ORDERED: CYANOCOBALAMIN 500 MCG TAB PO SCH (15:30)
[2024-09-06 17:55] VITALS: BP 143/74; PULSE 66; TEMP 97.9
[2024-09-06] MEDS ORDERED: ATORVASTATIN 40 MG TAB PO SCH (21:00)
--- NOTE | 2024-09-07 10:24 | P.DS ---
Providers Date of admission: 09/05/24 11:28 Expected date of discharge: 09/06/24 Attending physician: Greg Eng Consults: 09/03/24 14:38 Consult Physician Routine Consulting Provider: Dov Villalta Consult Reason/Comments: presyncope, hypertension Do you want consulting provider notified?: Yes 09/04/24 12:48 Consult Physician Urgent Consulting Provider: Aisha Richter Consult Reason/Comments: dizziness, lightedheadedness, htn Do you want consulting provider notified?: Yes Primary care physician: Vito Taveras Hospital Course: Final diagnosis dizziness and near syncopal episode, possibly and most likely related to uncontrolled blood pressure Hypertensive urgency Sinus bradycardia Diabetes mellitus, type II, hemoglobin A1c 6.7 Noncompliance with medications Morbid obesity with BMI of 40.3 Ongoing THC addiction Former smoker GI prophylaxis DVT prophylaxis with heparin subcu Full code Discharge disposition Patient is being discharged in a stable condition with guarded prognosis to home. Patient will follow-up with Dr. Taveras in the outpatient setting upon discharge. Patient is to continue with aspirin and statin therapy and outpatient follow-up with cardiology as scheduled. Total time taken is greater than 35 minutes. Hospital course This is a 63-year-old male who was recently admitted with dizziness and lightheadedness with hypertension uncontrolled. Patient being evaluated by cardiology as well as neurology underwent workup and adjustments to medications and has been started on medications recommending close outpatient follow-up in the next week. Patient reports improvement in symptoms and blood pressure appears better controlled on this regimen. Patient instructed to monitor blood pressure daily and keep a diary of all readings for primary and cardiology follow-up. Patient's hemoglobin A1c mildly elevated at 6.7 recommending diet modifications and discussing further with primary care provider regarding oral diabetic agents. Please refer to other consultation notes for further HPI. Currently no reports of chest pain, shortness of breath, or palpitations. Patient is afebrile. No reports of nausea or vomiting and patient is tolerating diet. Patient will be discharged home today. Physical exam: Gen: This is a 63-year-old male who is awake, alert and oriented x 3, well- developed, elderly appearing, morbidly obese HEENT: Head is atraumatic, normocephalic. Pupils equal, round. Sclerae is anicteric. NECK: Supple. No JVD. No lymphadenopathy. No thyromegaly. LUNGS: Diminished breath sounds bilaterally otherwise clear to auscultation. No wheezes, a few scattered rhonchi. No intercostal retractions. HEART: Regular rate and rhythm. No murmur. ABDOMEN: Soft. Obese. Bowel sounds are present. No masses. No tenderness. EXTREMITIES: No pedal edema. No calf tenderness. NEUROLOGICAL: Patient is awake, alert and oriented x3. Cranial nerves 2 through 12 are grossly intact. Please refer to medication reconciliation sheet for a list of medications. The impression and plan of care has been dictated by Liza Kwan, Nurse Practitioner as directed. Dr. Lucretia MD I have performed a history and examination and MDM of this patient, discussed the same with the dictator, and agree with the dictator's assessment and plan as written ,documented as a scribe. Based on total visit time, I have performed more than 50% of the visit. Patient Condition at Discharge: Fair Plan - Discharge Summary New Discharge Prescriptions: New hydrALAZINE HCL [Apresoline] 100 mg PO TID #60 tab cloNIDine HCL [Catapres] 0.2 mg PO TID #90 tab Acetaminophen Tab [Tylenol] 650 mg PO Q6HR PRN tab PRN Reason: Fever And/ Or Pain Aspirin 81 mg PO DAILY #30 tab Losartan [Cozaar] 100 mg PO DAILY #60 tab amLODIPine [Norvasc] 10 mg PO DAILY #30 tab Atorvastatin [Lipitor] 20 mg PO HS #30 tablet Discharge Medication List Acetaminophen Tab [Tylenol] 650 mg PO Q6HR PRN tab 09/06/24 [Rx] Aspirin 81 mg PO DAILY #30 tab 09/06/24 [Rx] Atorvastatin [Lipitor] 20 mg PO HS #30 tablet 09/06/24 [Rx] Losartan [Cozaar] 100 mg PO DAILY #60 tab 09/06/24 [Rx] amLODIPine [Norvasc] 10 mg PO DAILY #30 tab 09/06/24 [Rx] cloNIDine HCL [Catapres] 0.2 mg PO TID #90 tab 09/06/24 [Rx] hydrALAZINE HCL [Apresoline] 100 mg PO TID #60 tab 09/06/24 [Rx] Follow up Appointment(s)/Referral(s): Vito Taveras DO [Primary Care Provider] - 1-2 days Reagan Bower MD [Medical Doctor] - 3 Weeks Rashel Gloria MD [STAFF PHYSICIAN] - 09/13/24 4:00 pm Patient Instructions/Handouts: Hypertensive Crisis (ED), Hypertensive Crisis (DC) Activity/Diet/Wound Care/Special Instructions: Activity limited until follow-up Follow-up with primary care provider on discharge Follow-up with neurology outpatient Follow-up with cardiology outpatient Continue taking medications as prescribed Lifestyle modification changes including diet Borderline diabetic recommend diet modifications and discussing with primary care provider regarding possibly initiating oral diabetic agents Discharge Disposition: HOME SELF-CARE
== END 2024-09-06 15:50 | disposition home or self-care (01) | DRG 305 ==
LOC: EC 11:03 → 6NMEDSUR 14:35 → OBSVTOIN 09-05 11:28
PROVIDERS: ADMIT Hospitalist; ATTEND Hospitalist
DX: I16.0 Hypertensive urgency (principal); Z68.41 Body mass index [BMI] 40.0-44.9, adult; J32.0 Chronic maxillary sinusitis; J32.2 Chronic ethmoidal sinusitis; E66.01 Morbid (severe) obesity due to excess calories; E78.5 Hyperlipidemia, unspecified; I10 Essential (primary) hypertension; R00.1 Bradycardia, unspecified; Z79.899 Other long term (current) drug therapy; E11.9 Type 2 diabetes mellitus without complications; F12.20 Cannabis dependence, uncomplicated; Z91.148 Patient's other noncompliance with medication regimen for other reason; Z90.81 Acquired absence of spleen; Z87.891 Personal history of nicotine dependence
CPT/HCPCS: 36415; 70450; 70496; 70498; 71045; 80048; 80053; 80061; 82607; 82746; 83036; 83735; 84443; 84484; 85025; 87636; 93005; 93306; 93880; 94660; 96361; 96374; 99285